=== PATIENT | female | born 1975 | race Caucasian/White ===

== ENCOUNTER 2016-12-08 19:23 | Emergency (ER) | payer SELFPAY ==
[~2016-12-08] VITALS: Ht 162.6 cm; Wt 73.5 kg
[~2016-12-08 19:23] MED LIST: CLON0.1T PO; FAM20T PO; LEV500T GT
[2016-12-08 19:56] VITALS: BP 144/103
[2016-12-08 20:37] LABS: Urine Bilirubin Negative (Negative); Urine Blood Negative /uL (Negative); Urine Color Yellow (Yellow); Urine Glucose Normal (Normal); Urine Ketone Negative (Negative); Urine Mucus FEW (None Seen); Urine RBC 1 /hpf (0 - 4); Urine Squamous Epithelial Cell FEW /hpf (<5); Urine Urobilinogen Normal (Negative)
[2016-12-08 20:38] LABS: Urine Nitrite POSITIVE (Negative)
== END 2016-12-08 22:00 | disposition left against medical advice (07) ==
LOC: ER 19:33
DX: S09.90XA Unspecified injury of head, initial encounter (principal); Z53.21 Procedure and treatment not carried out due to patient leaving prior to being seen by health care provider; Y09 Assault by unspecified means; Y93.89 Activity, other specified; Y99.8 Other external cause status; Y92.89 Other specified places as the place of occurrence of the external cause
CPT/HCPCS: 81001; 81025

== ENCOUNTER 2017-12-03 19:56 | Emergency (ER) | payer SELFPAY ==
[~2017-12-03] VITALS: Ht 162.6 cm; Wt 72.6 kg
[2017-12-03 20:04] VITALS: BP 148/92
[2017-12-03 20:35] LABS: Basophils # (auto) 0 uL; Basophils % (auto) 0.3 % (0.0-2.0); Eosinophils # (auto) 0.2 uL; Eosinophils % (auto) 1.6 % (0.0-7.0); Hematocrit 35.3 % (36.0-46.0); Hemoglobin 12.1 g/dL (12.2-16.2); Lymphocytes # (auto) 1.6 uL; Lymphocytes % (auto) 16.8 % (10.0-50.0); Mean Corpuscular Hemoglobin 29.8 pg (28.0-32.0); Mean Corpuscular Hgb Conc. 34.3 g/dL (32.0-36.0); Mean Corpuscular Volume 86.8 fL (80.0-100.0); Monocytes # (auto) 0.5 uL; Monocytes % (auto) 4.9 % (0.0-12.0); Neutrophils # (auto) 7.4 uL; Neutrophils % (auto) 76.4 % (37.0-80.0); Nucleated Red Blood Cells % 0.1 %; Platelet Count (auto) 239 10^3/uL (140-450); Red Blood Cells 4.06 10^6/uL (4.0-5.20); Red Cell Distribution Width 14.8 % (11.8-14.3); White Blood Cell 9.7 10^3/uL (4.4-10.8)
[2017-12-03 20:41] LABS: Urine Bacteria MOD /hpf (None Seen); Urine Blood Negative /uL (Negative); Urine Mucus FEW (None Seen); Urine Specific Gravity 1.022 (1.001-1.035); Urine WBC 29 /hpf (0 - 5)
[2017-12-03 20:48] LABS: Albumin 3.1 g/dL (3.4-5.0); BUN/Creatinine Ratio 16.7; Calcium 8.7 mg/dL (8.5-10.1); Potassium 3.9 mmol/L (3.5-5.1)
[2017-12-03 20:51] LABS: Bilirubin, Total 0.3 mg/dL (0.2-1.0); Total Protein 7.4 g/dL (6.4-8.2)
[2017-12-04 07:28] LABS: Alcohol, Urine < 3.0 mg/dL (0-5); Amphetamine Screen, Urine POSITIVE (NEGATIVE); Barbiturate Scree,Urine NEGATIVE (NEGATIVE); Benzodiazephine Screen, Urine NEGATIVE (NEGATIVE); Cannabinoid Screen, Urine NEGATIVE (NEGATIVE); Cocaine Screen, Urine NEGATIVE (NEGATIVE); Opiate Scree,Urine NEGATIVE (NEGATIVE); Phencyclidine Screen, Urine NEGATIVE (NEGATIVE)
[2017-12-04] MEDS ORDERED: ACETAMINOPHEN 325 MG TAB PO ONE (09:00)
[2017-12-04] MEDS ORDERED: cefTRIAXone SOD 1,000 MG VL IM ONE (09:00)
== END 2017-12-04 09:29 | disposition home or self-care (01) ==
LOC: ER 19:56
DX: O23.42 Unspecified infection of urinary tract in pregnancy, second trimester (principal); O26.892 Other specified pregnancy related conditions, second trimester; R59.9 Enlarged lymph nodes, unspecified; O16.2 Unspecified maternal hypertension, second trimester; O99.332 Smoking (tobacco) complicating pregnancy, second trimester; F17.210 Nicotine dependence, cigarettes, uncomplicated; O99.322 Drug use complicating pregnancy, second trimester; F15.90 Other stimulant use, unspecified, uncomplicated; Z88.0 Allergy status to penicillin; Z88.6 Allergy status to analgesic agent; Z3A.15 15 weeks gestation of pregnancy
CPT/HCPCS: 36415; 76801; 80053; 80307; 81001; 81025; 83690; 84702; 85025; 96372; 99285; J0696

== ENCOUNTER 2018-01-15 12:20 | Observation (INO) | payer SELFPAY ==
[2018-01-15 14:02] LABS: Urine Amorphous Crystal FEW /hpf (None Seen); Urine Bacteria MOD /hpf (None Seen); Urine Blood 1+ /uL (Negative); Urine Mucus FEW (None Seen); Urine Specific Gravity 1.017 (1.001-1.035); Urine WBC 2257 /hpf (0 - 5); Urine WBC Clumps PRESENT /hpf (None Seen)
[2018-01-15 14:34] LABS: Alcohol, Urine < 3.0 mg/dL (0-5); Amphetamine Screen, Urine POSITIVE (NEGATIVE); Barbiturate Scree,Urine NEGATIVE (NEGATIVE); Benzodiazephine Screen, Urine NEGATIVE (NEGATIVE); Cannabinoid Screen, Urine NEGATIVE (NEGATIVE); Cocaine Screen, Urine NEGATIVE (NEGATIVE); Opiate Scree,Urine NEGATIVE (NEGATIVE); Phencyclidine Screen, Urine NEGATIVE (NEGATIVE)
== END 2018-01-15 15:35 | disposition home or self-care (01) | DRG 781 ==
LOC: LDRP 12:20
PROVIDERS: ADMIT Specialist; ATTEND Specialist
DX: O26.892 Other specified pregnancy related conditions, second trimester (principal); F17.210 Nicotine dependence, cigarettes, uncomplicated; R51 Headache; O99.332 Smoking (tobacco) complicating pregnancy, second trimester; O48.0 Post-term pregnancy; Z3A.21 21 weeks gestation of pregnancy
CPT/HCPCS: 59025; 76805; 76815; 80307; 81001; 81002; G0378

== ENCOUNTER 2018-05-23 17:59 | Observation (INO) | payer OTHER ==
[~2018-05-23 17:59] MED LIST changes: -CLON0.1T PO; -FAM20T PO; -LEV500T GT; +PREN-153 OR
[2018-05-23 18:55] LABS: Alcohol, Urine < 3.0 mg/dL (0-5); Barbiturate Scree,Urine NEGATIVE (NEGATIVE); Benzodiazephine Screen, Urine NEGATIVE (NEGATIVE); Cannabinoid Screen, Urine NEGATIVE (NEGATIVE); Cocaine Screen, Urine NEGATIVE (NEGATIVE); Opiate Scree,Urine NEGATIVE (NEGATIVE); Phencyclidine Screen, Urine NEGATIVE (NEGATIVE)
[2018-05-23 18:57] LABS: Amphetamine Screen, Urine POSITIVE (NEGATIVE)
[2018-05-23 19:00] LABS: Urine Bacteria NONE SEEN /hpf (None Seen); Urine Blood Negative /uL (Negative); Urine Mucus FEW (None Seen); Urine Specific Gravity 1.024 (1.001-1.035); Urine WBC 221 /hpf (0 - 5)
[2018-05-24] MEDS ORDERED: FERR-7 PO (10:42)
== END 2018-05-23 20:36 | disposition home or self-care (01) | DRG 566 ==
LOC: LDRP 17:59
PROVIDERS: ADMIT Specialist; ATTEND Specialist
DX: O62.9 Abnormality of forces of labor, unspecified (principal); F17.210 Nicotine dependence, cigarettes, uncomplicated; O09.523 Supervision of elderly multigravida, third trimester; O99.333 Smoking (tobacco) complicating pregnancy, third trimester; Z3A.40 40 weeks gestation of pregnancy
CPT/HCPCS: 59025; 76805; 76818; 80307; 81001; 81002; G0378

== ENCOUNTER 2018-05-24 09:45 | Inpatient (IN) | payer OTHER ==
[~2018-05-24] VITALS: Ht 162.6 cm; Wt 78.9 kg
[2018-05-24] MEDS ORDERED: FERR-7 PO (10:42)
[2018-05-24 11:13] LABS: Urine Bacteria MOD /hpf (None Seen); Urine Blood Negative /uL (Negative); Urine Mucus FEW (None Seen); Urine Specific Gravity 1.018 (1.001-1.035); Urine WBC 103 /hpf (0 - 5)
[2018-05-24 11:36] LABS: Alcohol, Urine < 3.0 mg/dL (0-5); Amphetamine Screen, Urine NEGATIVE (NEGATIVE); Barbiturate Scree,Urine NEGATIVE (NEGATIVE); Benzodiazephine Screen, Urine NEGATIVE (NEGATIVE); Cannabinoid Screen, Urine NEGATIVE (NEGATIVE); Cocaine Screen, Urine NEGATIVE (NEGATIVE); Opiate Scree,Urine NEGATIVE (NEGATIVE); Phencyclidine Screen, Urine NEGATIVE (NEGATIVE)
[2018-05-24] MEDS ORDERED: DERMOPLAST 60ML BOTTLE TOP PRN (12:15)
[2018-05-24] MEDS ORDERED: LIDOCAINE 2% (LOCAL ANESTH.) PF 5ml SDV ID PRN (12:15)
[2018-05-24] MEDS ORDERED: WITCH HAZEL-GLYCERIN PAD TOP PRN (12:15)
[2018-05-24] MEDS ORDERED: LACT. RINGERS/OXYTOCIN 20UNITS 1,000 ML IV SCH (12:15)
[2018-05-24] MEDS ORDERED: NALBUPHINE HCL 10 MG/1ml INJECTION IV PRN (12:15)
[2018-05-24] MEDS ORDERED: PHISODERM TOP SOLN 240ML BTL TOP PRN (12:15)
[2018-05-24] MEDS: CLINDAMYCIN 900MG IV 50 ML IV SCH ×2 (13:03→20:53)
[2018-05-24] MEDS: LACTATED RINGER'S 1,000 ML IV SCH ×2 (13:05→23:10)
[2018-05-24 13:29] LABS: Basophils # (auto) 0 uL; Basophils % (auto) 0.2 % (0.0-2.0); Eosinophils # (auto) 0.1 uL; Eosinophils % (auto) 0.5 % (0.0-7.0); Lymphocytes # (auto) 1.4 uL; Lymphocytes % (auto) 11.4 % (10.0-50.0); Mean Corpuscular Hemoglobin 27.6 pg (28.0-32.0); Mean Corpuscular Hgb Conc. 33.3 g/dL (32.0-36.0); Mean Corpuscular Volume 82.9 fL (80.0-100.0); Monocytes # (auto) 0.4 uL; Monocytes % (auto) 3.1 % (0.0-12.0); Neutrophils # (auto) 10.4 uL; Neutrophils % (auto) 84.8 % (37.0-80.0); Platelet Count (auto) 173 10^3/uL (140-450); Red Blood Cells 4.35 10^6/uL (4.0-5.20); Red Cell Distribution Width 14.6 % (11.8-14.3); White Blood Cell 12.3 10^3/uL (4.4-10.8)
[2018-05-24 13:43] LABS: INR 0.92 (0.9-1.15); Partial Thromboplastin Time 25.9 sec (23.78-33.04); Prothrombin Time 9.9 sec (9.27-12.13)
[2018-05-24 13:50] LABS: Albumin 2.2 g/dL (3.4-5.0); BUN/Creatinine Ratio 15.8; Bilirubin, Total 0.4 mg/dL (0.2-1.0); Calcium 8.9 mg/dL (8.5-10.1); Potassium 3.6 mmol/L (3.5-5.1); Total Protein 7.1 g/dL (6.4-8.2)
[2018-05-24] MEDS ORDERED: TERBUTALINE SULFATE 1 MG/ML 1ML VIAL SC ONE (19:57)
[2018-05-24] MEDS ORDERED: ePHEDrine SULFATE 50 MG/ML AMP IV ONE (22:45)
[2018-05-24] MEDS ORDERED: NALOXONE HCL 0.4 MG/ML VIAL IV ONE (22:45)
[2018-05-24] MEDS ORDERED: LIDOCAINE HCL 2 %PF INJ 10ML AMP IJ ONE (22:45)
[2018-05-24] MEDS ORDERED: fentaNYL W ROPIVACAINE 150 ML EPI SCH (22:45)
[2018-05-24] MEDS ORDERED: fentaNYL CITRATE 100 MCG/2 ML VL ONE (23:03)
[2018-05-24] MEDS ORDERED: LIDOCAINE 2% (LOCAL ANESTH.) PF 5ml SDV ONE (23:04)
[2018-05-24] MEDS ORDERED: fentaNYL W ROPIVACAINE 150 ML EPI ONE (23:04)
[2018-05-24] MEDS ORDERED: ePHEDrine SULFATE 50 MG/ML AMP ONE (23:04)
[2018-05-25] MEDS ORDERED: LACTATED RINGER'S 1,000 ML IV ONE (00:15)
[2018-05-25] MEDS ORDERED: LACT. RINGERS/OXYTOCIN 20UNITS 500 ML IV ONE (05:54)
[2018-05-25] MEDS ORDERED: LACT. RINGERS/OXYTOCIN 20UNITS 1,000 ML IV SCH (06:54)
[2018-05-25 06:58] VITALS: BP 104/68
[2018-05-25 10:51] VITALS: BP 117/67
[2018-05-25 11:15] VITALS: BP 134/70
[2018-05-25] MEDS: ACETAMINOPHEN 325 MG TAB PO PRN (11:59)
[2018-05-25 13:38] LABS: RPR Non Reactive (Non Reactive)
[2018-05-25] MEDS ORDERED: RHO (D) IMMUNE GLOBULIN 300 MCG INJ IM ONE (15:00)
[2018-05-25 15:05] VITALS: BP 131/72
[2018-05-25] MEDS: IBUPROFEN 600 MG TAB PO PRN ×2 (16:14→23:23)
[2018-05-25 19:00] VITALS: BP 135/62
[2018-05-25 23:00] VITALS: BP 113/76
[2018-05-26] VITALS (7 sets, daily range): BP systolic 116–125; BP diastolic 64–86
[2018-05-26] MEDS: ACETAMINOPHEN 325 MG TAB PO PRN ×2 (03:43→20:11)
[2018-05-26] MEDS ORDERED: ONDANSETRON ODT 4 MG TAB PO PRN (06:30)
[2018-05-26] MEDS: IBUPROFEN 600 MG TAB PO PRN ×2 (09:33→16:40)
[2018-05-27 03:00] VITALS: BP 113/59
[2018-05-27 06:45] VITALS: BP 138/74
[2018-05-27] MEDS: IBUPROFEN 600 MG TAB PO PRN (09:01)
[2018-05-27 11:00] VITALS: BP 125/93
== END 2018-05-27 14:40 | disposition home or self-care (01) | DRG 560 ==
LOC: LDRP 09:45 → OBSVTOIN 12:10 → LDRP 05-26 11:49
PROVIDERS: ADMIT Specialist; ATTEND Specialist
PROC: 10E0XZZ Delivery of Products of Conception, External Approach (ICD-10-PCS; principal; 2018-05-25)
PROC: 0HQ9XZZ Repair Perineum Skin, External Approach (ICD-10-PCS; 2018-05-25)
PROC: 3E0R3BZ Introduction of Anesthetic Agent into Spinal Canal, Percutaneous Approach (ICD-10-PCS; 2018-05-25)
PROC: 00HU33Z Insertion of Infusion Device into Spinal Canal, Percutaneous Approach (ICD-10-PCS; 2018-05-25)
PROC: 3E0234Z Introduction of Serum, Toxoid and Vaccine into Muscle, Percutaneous Approach (ICD-10-PCS; 2018-05-25)
DX: O69.81X0 Labor and delivery complicated by cord around neck, without compression, not applicable or unspecified (principal); O41.03X0 Oligohydramnios, third trimester, not applicable or unspecified; O70.0 First degree perineal laceration during delivery; Z37.0 Single live birth; Z3A.40 40 weeks gestation of pregnancy; Z88.0 Allergy status to penicillin; Z23 Encounter for immunization
CPT/HCPCS: 36415; 59025; 59409; 76815; 80053; 80307; 81001; 81002; 85025; 85610; 85730; 86592; 86850; 86900; 86901; 90384; 94760; 96361; 96366; 96372; 96375; G0378; J2001; J2590; J3010; J3490

== ENCOUNTER 2019-09-17 18:17 | Inpatient (IN) | payer SELFPAY ==
[~2019-09-17] VITALS: Ht 160 cm; Wt 79.6 kg
[~2019-09-17 18:17] MED LIST changes: +FERR-7 PO
[2019-09-17 18:54] LABS: Urine Bacteria FEW /hpf (None Seen); Urine Blood Negative /uL (Negative); Urine Mucus FEW (None Seen); Urine Specific Gravity 1.018 (1.001-1.035); Urine WBC 21 /hpf (0 - 5)
[2019-09-17] MEDS ORDERED: SODIUM CHLORIDE 0.9% 1,000 ML IV ONE ×2 (19:02)
[2019-09-17] MEDS ORDERED: LEVOFLOXACIN 500MG 100 ML IV ONE (19:15)
[2019-09-17 19:20] LABS: Basophils # (auto) 0 uL; Basophils % (auto) 0.4 % (0.0-2.0); Eosinophils # (auto) 0 uL; Eosinophils % (auto) 0.1 % (0.0-7.0); Hemoglobin 13.8 g/dL (12.2-16.2); Lymphocytes # (auto) 0.8 uL; Lymphocytes % (auto) 6.2 % (10.0-50.0); Mean Corpuscular Hgb Conc. 33.7 g/dL (32.0-36.0); Monocytes # (auto) 1.3 uL; Monocytes % (auto) 10.1 % (0.0-12.0); Neutrophils % (auto) 83.2 % (37.0-80.0); Nucleated Red Blood Cells % 0.1 %; Platelet Count (auto) 234 10^3/uL (140-450); Red Blood Cells 4.94 10^6/uL (4.0-5.20); Red Cell Distribution Width 14.9 % (11.8-14.3); White Blood Cell 13.2 10^3/uL (4.4-10.8)
[2019-09-17 19:39] LABS: Albumin 3.3 g/dL (3.4-5.0); Calcium 9.1 mg/dL (8.5-10.1); Potassium 4.4 mmol/L (3.5-5.1)
[2019-09-17 19:42] LABS: BUN/Creatinine Ratio 12.6; Bilirubin, Total 1.6 mg/dL (0.2-1.0); Total Protein 7.7 g/dL (6.4-8.2)
[2019-09-17] MEDS ORDERED: KETOROLAC TROMETH 30 MG/ML 1ML VIAL IV ONE (20:30)
[2019-09-17] MEDS ORDERED: TAMSULOSIN HYDROCHLORIDE 0.4 MG CAP PO ONE (20:30)
[2019-09-17] MEDS ORDERED: DOCUSATE SOD 100 MG CAP PO PRN (21:45)
[2019-09-17] MEDS ORDERED: ACETAMINOPHEN 325 MG TAB PO PRN (21:45)
[2019-09-17] MEDS ORDERED: TEMAZEPAM 15 MG CAP PO PRN (21:45)
[2019-09-18] MEDS: SODIUM CHLORIDE 0.9% 1,000 ML IV SCH (04:58)
[2019-09-18 07:36] LABS: Basophils # (auto) 0 uL; Basophils % (auto) 0.3 % (0.0-2.0); Eosinophils # (auto) 0 uL; Eosinophils % (auto) 0.4 % (0.0-7.0); Hematocrit 34.8 % (36.0-46.0); Hemoglobin 11.4 g/dL (12.2-16.2); Lymphocytes # (auto) 0.9 uL; Lymphocytes % (auto) 11.7 % (10.0-50.0); Mean Corpuscular Hgb Conc. 32.8 g/dL (32.0-36.0); Mean Corpuscular Volume 85.5 fL (80.0-100.0); Monocytes # (auto) 0.8 uL; Monocytes % (auto) 10.8 % (0.0-12.0); Neutrophils # (auto) 5.6 uL; Neutrophils % (auto) 76.8 % (37.0-80.0); Nucleated Red Blood Cells % 0.1 %; Platelet Count (auto) 159 10^3/uL (140-450); Red Blood Cells 4.07 10^6/uL (4.0-5.20); Red Cell Distribution Width 15.3 % (11.8-14.3); White Blood Cell 7.3 10^3/uL (4.4-10.8)
[2019-09-18 08:04] LABS: BUN/Creatinine Ratio 16.3; Calcium 7.1 mg/dL (8.5-10.1)
[2019-09-18] MEDS ORDERED: MANNITOL FTV 25% 12.5 GM/50 ML 50 ML IV ONE (09:30)
[2019-09-18] MEDS: cefTRIAXone 1GM/50ML D5W 50 ML IV SCH (11:08)
[2019-09-18] MEDS: HYDROcodone-ACET 5/325MG TAB PO PRN ×2 (11:25→19:16)
[2019-09-18 13:00] VITALS: BP 108/58
[2019-09-18] MEDS: MORPHINE SULFATE 4 MG/ML SYR/VIAL IV PRN (21:48)
[2019-09-18 22:00] VITALS: BP 116/70
[2019-09-19] MEDS: SODIUM CHLORIDE 0.9% 1,000 ML IV SCH ×2 (01:59→14:53)
[2019-09-19] MEDS: MORPHINE SULFATE 4 MG/ML SYR/VIAL IV PRN ×4 (03:30→20:27)
[2019-09-19] MEDS: ONDANSETRON HCL 4 MG/2 ML VIAL IV PRN ×2 (03:41→20:27)
[2019-09-19 05:26] VITALS: BP_SYST 108; BP_SYST 119; BP_DIAS 61; BP_DIAS 77
[2019-09-19 05:56] LABS: Basophils # (auto) 0 uL; Basophils % (auto) 0.4 % (0.0-2.0); Eosinophils # (auto) 0.1 uL; Eosinophils % (auto) 1.7 % (0.0-7.0); Hematocrit 31.8 % (36.0-46.0); Hemoglobin 10.7 g/dL (12.2-16.2); Lymphocytes % (auto) 16.2 % (10.0-50.0); Mean Corpuscular Hemoglobin 28.4 pg (28.0-32.0); Mean Corpuscular Hgb Conc. 33.8 g/dL (32.0-36.0); Monocytes # (auto) 0.6 uL; Monocytes % (auto) 9.2 % (0.0-12.0); Neutrophils # (auto) 4.4 uL; Neutrophils % (auto) 72.5 % (37.0-80.0); Platelet Count (auto) 169 10^3/uL (140-450); Red Blood Cells 3.78 10^6/uL (4.0-5.20); Red Cell Distribution Width 15.3 % (11.8-14.3); White Blood Cell 6.1 10^3/uL (4.4-10.8)
[2019-09-19 06:09] LABS: INR 1.2 (0.9-1.15)
[2019-09-19 06:13] LABS: Calcium 8.6 mg/dL (8.5-10.1); Potassium 4.1 mmol/L (3.5-5.1)
[2019-09-19 06:15] LABS: BUN/Creatinine Ratio 24.8
[2019-09-19 09:00] VITALS: BP 108/65
[2019-09-19] MEDS: cefTRIAXone 1GM/50ML D5W 50 ML IV SCH (10:20)
[2019-09-19 13:00] VITALS: BP 112/67
[2019-09-19] MEDS ORDERED: MANNITOL FTV 25% 12.5 GM/50 ML 50 ML IV ONE (14:30)
[2019-09-19] MEDS ORDERED: KETOROLAC TROMETH 30 MG/ML 1ML VIAL IV PRN (14:30)
[2019-09-19] MEDS ORDERED: TAMSULOSIN HYDROCHLORIDE 0.4 MG CAP PO ONE (14:45)
[2019-09-19 17:00] VITALS: BP 109/60
[2019-09-19] MEDS: PHENAZOPYRIDINE HCL 100 MG TAB PO SCH (18:27)
[2019-09-19 22:00] VITALS: BP 100/66
[2019-09-19 23:58] VITALS: BP 100/66
[2019-09-20] MEDS: SODIUM CHLORIDE 0.9% 1,000 ML IV SCH (05:20)
[2019-09-20 05:36] VITALS: BP 113/68
[2019-09-20 05:59] LABS: Basophils # (auto) 0 uL; Basophils % (auto) 0.4 % (0.0-2.0); Eosinophils # (auto) 0.1 uL; Eosinophils % (auto) 2.1 % (0.0-7.0); Hematocrit 31.7 % (36.0-46.0); Hemoglobin 10.9 g/dL (12.2-16.2); Lymphocytes % (auto) 23.1 % (10.0-50.0); Mean Corpuscular Hemoglobin 29.2 pg (28.0-32.0); Mean Corpuscular Hgb Conc. 34.3 g/dL (32.0-36.0); Mean Corpuscular Volume 85.1 fL (80.0-100.0); Monocytes # (auto) 0.4 uL; Monocytes % (auto) 10.1 % (0.0-12.0); Neutrophils # (auto) 2.8 uL; Neutrophils % (auto) 64.3 % (37.0-80.0); Nucleated Red Blood Cells % 0.1 %; Platelet Count (auto) 174 10^3/uL (140-450); Red Blood Cells 3.73 10^6/uL (4.0-5.20); Red Cell Distribution Width 15.2 % (11.8-14.3); White Blood Cell 4.4 10^3/uL (4.4-10.8)
[2019-09-20 06:20] LABS: BUN/Creatinine Ratio 20.2; Calcium 8.3 mg/dL (8.5-10.1); Potassium 4.4 mmol/L (3.5-5.1)
[2019-09-20] MEDS: cefTRIAXone 1GM/50ML D5W 50 ML IV SCH (08:54)
[2019-09-20] MEDS: PHENAZOPYRIDINE HCL 100 MG TAB PO SCH ×3 (08:54→20:43)
[2019-09-20] MEDS: MORPHINE SULFATE 4 MG/ML SYR/VIAL IV PRN ×3 (08:54→21:19)
[2019-09-20 09:00] VITALS: BP 114/65
[2019-09-20 13:00] VITALS: BP 117/69
[2019-09-20 17:00] VITALS: BP 144/86
[2019-09-20] MEDS ORDERED: TAMSULOSIN HYDROCHLORIDE 0.4 MG CAP PO SCH (18:00)
[2019-09-20] MEDS: ONDANSETRON HCL 4 MG/2 ML VIAL IV PRN (21:19)
[2019-09-20 22:00] VITALS: BP 120/67
[2019-09-21] MEDS: MORPHINE SULFATE 4 MG/ML SYR/VIAL IV PRN ×2 (04:03→09:41)
[2019-09-21 05:00] VITALS: BP 101/55
[2019-09-21] MEDS: SODIUM CHLORIDE 0.9% 1,000 ML IV SCH ×2 (05:52→14:50)
[2019-09-21 09:31] VITALS: BP 115/63
[2019-09-21] MEDS: PHENAZOPYRIDINE HCL 100 MG TAB PO SCH ×2 (09:40→12:00)
[2019-09-21] MEDS: cefTRIAXone 1GM/50ML D5W 50 ML IV SCH (09:41)
[2019-09-21 12:35] VITALS: BP 106/60
[2019-09-24] MEDS ORDERED: HYDROcodone-ACET 5/325MG TAB PO PRN (14:30)
== END 2019-09-21 15:40 | disposition home or self-care (01) | DRG 690 ==
LOC: ER 18:17 → OVERFLOW 18:18 → WEST WING 09-18 09:12
PROVIDERS: ADMIT Hospitalist; ATTEND Family Medicine
DX: N13.6 Pyonephrosis (principal); E87.1 Hypo-osmolality and hyponatremia; N17.0 Acute kidney failure with tubular necrosis; E86.0 Dehydration; F17.210 Nicotine dependence, cigarettes, uncomplicated; B96.20 Unspecified Escherichia coli [E. coli] as the cause of diseases classified elsewhere; I12.9 Hypertensive chronic kidney disease with stage 1 through stage 4 chronic kidney disease, or unspecified chronic kidney disease; N18.9 Chronic kidney disease, unspecified; Z83.3 Family history of diabetes mellitus; Z80.0 Family history of malignant neoplasm of digestive organs; Z87.442 Personal history of urinary calculi; Z88.0 Allergy status to penicillin; Z88.8 Allergy status to other drugs, medicaments and biological substances
CPT/HCPCS: 36415; 71045; 74176; 80048; 80053; 81001; 84484; 85025; 85610; 87086; 87088; 87186; G0378; J0696; J1885; J1956; J2405

== ENCOUNTER 2022-06-05 17:59 | Emergency (ER) | payer MEDICAID, OTHER ==
[~2022-06-05] VITALS: Ht 160 cm; Wt 70.0 kg
[2022-06-05 18:21] VITALS: BP 160/96
[2022-06-05 19:11] LABS: Basophils # (auto) 0.1 10 ^3/uL (0-0.2); Basophils % (auto) 0.7 % (0.0-2.0); Eosinophils # (auto) 0 10 ^3/uL (0-0.8); Eosinophils % (auto) 0.4 % (0.0-7.0); Lymphocytes # (auto) 1.8 10 ^3/uL (0.4-5.4); Lymphocytes % (auto) 23.6 % (10.0-50.0); Mean Corpuscular Hemoglobin 30.2 pg (28.0-32.0); Mean Corpuscular Hgb Conc. 33.3 g/dL (32.0-36.0); Mean Corpuscular Volume 90.7 fL (80.0-100.0); Monocytes # (auto) 0.4 10 ^3/uL (0-1.3); Neutrophils # (auto) 5.5 10 ^3/uL (1.6-8.6); Neutrophils % (auto) 70.3 % (37.0-80.0); Nucleated Red Blood Cells % 0.2 %; Red Blood Cells 4.63 10^6/uL (4.0-5.20); Red Cell Distribution Width 13.3 % (11.8-14.3); White Blood Cell 7.8 10^3/uL (4.4-10.8)
[2022-06-05 19:19] LABS: Urine Bacteria FEW /hpf (None Seen); Urine Blood Negative /uL (Negative); Urine Mucus FEW (None Seen); Urine Specific Gravity 1.031 (1.001-1.035); Urine WBC 24 /hpf (0 - 5)
[2022-06-05 19:30] LABS: Albumin 3.8 g/dL (3.4-5.0); BUN/Creatinine Ratio 9.6; Calcium 8.6 mg/dL (8.5-10.1); Potassium 3.6 mmol/L (3.5-5.1)
[2022-06-05 19:33] LABS: Bilirubin, Total 1.1 mg/dL (0.2-1.0); Total Protein 7.4 g/dL (6.4-8.2)
[2022-06-07] MEDS ORDERED: LEVO750T8 PO (21:04)
== END 2022-06-06 01:55 | disposition left against medical advice (07) ==
LOC: ER 17:59
DX: R10.9 Unspecified abdominal pain (principal); R50.9 Fever, unspecified; Z53.21 Procedure and treatment not carried out due to patient leaving prior to being seen by health care provider
CPT/HCPCS: 36415; 74176; 80053; 81001; 81025; 85025

== ENCOUNTER 2022-06-07 15:41 | Emergency (ER) | payer MEDICAID ==
[~2022-06-07] VITALS: Ht 160 cm; Wt 74.3 kg
[2022-06-07 17:36] LABS: Basophils # (auto) 0 10 ^3/uL (0-0.2); Basophils % (auto) 0.3 % (0.0-2.0); Eosinophils # (auto) 0.1 10 ^3/uL (0-0.8); Eosinophils % (auto) 0.9 % (0.0-7.0); Hematocrit 40.1 % (36.0-46.0); Hemoglobin 13.5 g/dL (12.2-16.2); Lymphocytes # (auto) 1.2 10 ^3/uL (0.4-5.4); Lymphocytes % (auto) 17.1 % (10.0-50.0); Mean Corpuscular Hemoglobin 30.5 pg (28.0-32.0); Mean Corpuscular Hgb Conc. 33.5 g/dL (32.0-36.0); Mean Corpuscular Volume 91.1 fL (80.0-100.0); Monocytes # (auto) 0.4 10 ^3/uL (0-1.3); Monocytes % (auto) 5.7 % (0.0-12.0); Neutrophils # (auto) 5.2 10 ^3/uL (1.6-8.6); Red Blood Cells 4.41 10^6/uL (4.0-5.20); Red Cell Distribution Width 13.3 % (11.8-14.3); White Blood Cell 6.8 10^3/uL (4.4-10.8)
[2022-06-07 17:38] LABS: Urine Bacteria FEW /hpf (None Seen); Urine Blood 1+ /uL (Negative); Urine Hyaline Cast FEW /lpf (0 - 2); Urine Mucus FEW (None Seen); Urine Specific Gravity 1.028 (1.001-1.035); Urine WBC 122 /hpf (0 - 5)
[2022-06-07 17:53] LABS: Lactic Acid w/Reflex 2.7 mmol/L (0.4-2.0)
[2022-06-07 17:57] LABS: Albumin 3.5 g/dL (3.4-5.0); Calcium 8.7 mg/dL (8.5-10.1); Potassium 3.1 mmol/L (3.5-5.1)
[2022-06-07 18:01] LABS: BUN/Creatinine Ratio 8.6; Total Protein 6.9 g/dL (6.4-8.2)
[2022-06-07] MEDS ORDERED: SODIUM CHLORIDE 0.9% 1,000 ML IV ONE (18:45)
[2022-06-07] MEDS ORDERED: levoFLOXacin 750MG 150 ML IV ONE (18:45)
[2022-06-07 20:00] VITALS: BP 164/97
[2022-06-07 20:15] LABS: Amphetamine Screen, Urine POSITIVE (NEGATIVE); Barbiturate Scree,Urine NEGATIVE (NEGATIVE); Benzodiazephine Screen, Urine NEGATIVE (NEGATIVE); Cannabinoid Screen, Urine NEGATIVE (NEGATIVE); Cocaine Screen, Urine NEGATIVE (NEGATIVE); Phencyclidine Screen, Urine NEGATIVE (NEGATIVE)
[2022-06-07 20:28] LABS: Alcohol, Urine < 3.0 mg/dL (0-10); Opiate Scree,Urine NEGATIVE (NEGATIVE)
[2022-06-07] MEDS ORDERED: LEVO750T8 PO (21:04)
== END 2022-06-07 21:31 | disposition home or self-care (01) ==
LOC: ER 15:45
DX: N39.0 Urinary tract infection, site not specified (principal); F15.10 Other stimulant abuse, uncomplicated; F12.10 Cannabis abuse, uncomplicated; I10 Essential (primary) hypertension; F17.210 Nicotine dependence, cigarettes, uncomplicated; Z79.2 Long term (current) use of antibiotics; Z88.0 Allergy status to penicillin; Z88.2 Allergy status to sulfonamides; Z91.018 Allergy to other foods
CPT/HCPCS: 36415; 74176; 80053; 80307; 81001; 83605; 83690; 84702; 85025; 96365; 99284; J1956

== ENCOUNTER 2022-06-19 03:32 | Emergency (ER) | payer MEDICAID ==
[~2022-06-19] VITALS: Ht 160 cm; Wt 74.0 kg
[~2022-06-19 03:32] MED LIST changes: -FERR-7 PO; +LEVO750T8 PO; -PREN-153 OR
[2022-06-19 04:03] VITALS: BP 186/110
[2022-06-19 05:08] LABS: Basophils # (auto) 0 10 ^3/uL (0-0.2); Basophils % (auto) 0.5 % (0.0-2.0); Eosinophils # (auto) 0.1 10 ^3/uL (0-0.8); Eosinophils % (auto) 1.9 % (0.0-7.0); Hematocrit 39.5 % (36.0-46.0); Hemoglobin 13.3 g/dL (12.2-16.2); Lymphocytes # (auto) 1.6 10 ^3/uL (0.4-5.4); Mean Corpuscular Hemoglobin 30.7 pg (28.0-32.0); Mean Corpuscular Hgb Conc. 33.7 g/dL (32.0-36.0); Mean Corpuscular Volume 91.1 fL (80.0-100.0); Monocytes # (auto) 0.4 10 ^3/uL (0-1.3); Monocytes % (auto) 5.4 % (0.0-12.0); Neutrophils # (auto) 5.2 10 ^3/uL (1.6-8.6); Neutrophils % (auto) 70.2 % (37.0-80.0); Nucleated Red Blood Cells % 0.1 %; Red Blood Cells 4.33 10^6/uL (4.0-5.20); Red Cell Distribution Width 13.5 % (11.8-14.3); White Blood Cell 7.5 10^3/uL (4.4-10.8)
[2022-06-19 05:25] LABS: Albumin 3.5 g/dL (3.4-5.0); Calcium 8.6 mg/dL (8.5-10.1); Potassium 4.2 mmol/L (3.5-5.1)
[2022-06-19 05:30] LABS: BUN/Creatinine Ratio 14.4; Bilirubin, Total 0.5 mg/dL (0.2-1.0); Total Protein 6.7 g/dL (6.4-8.2)
== END 2022-06-19 06:38 | disposition left against medical advice (07) ==
LOC: ER 03:34
DX: R30.0 Dysuria (principal); R35.0 Frequency of micturition; R10.2 Pelvic and perineal pain; R11.2 Nausea with vomiting, unspecified; Z53.21 Procedure and treatment not carried out due to patient leaving prior to being seen by health care provider
CPT/HCPCS: 36415; 74176; 80053; 85025

== ENCOUNTER 2022-08-07 17:49 | Emergency (ER) | payer MEDICAID ==
[~2022-08-07] VITALS: Ht 160 cm; Wt 76.8 kg
[2022-08-07] MEDS ORDERED: traMADol HCL 50 MG TAB PO ONE (20:15)
[2022-08-07] MEDS ORDERED: cloNIDine HCL 0.1 MG TAB PO ONE (20:15)
[2022-08-07 21:30] LABS: Basophils # (auto) 0.1 10 ^3/uL (0-0.2); Basophils % (auto) 0.6 % (0.0-2.0); Eosinophils # (auto) 0.1 10 ^3/uL (0-0.8); Eosinophils % (auto) 1.3 % (0.0-7.0); Hematocrit 45.8 % (36.0-46.0); Hemoglobin 15.7 g/dL (12.2-16.2); Lymphocytes # (auto) 2.1 10 ^3/uL (0.4-5.4); Lymphocytes % (auto) 21.4 % (10.0-50.0); Mean Corpuscular Hgb Conc. 34.2 g/dL (32.0-36.0); Mean Corpuscular Volume 90.7 fL (80.0-100.0); Monocytes # (auto) 0.5 10 ^3/uL (0-1.3); Monocytes % (auto) 5.5 % (0.0-12.0); Neutrophils % (auto) 71.2 % (37.0-80.0); Nucleated Red Blood Cells % 0.3 %; Red Blood Cells 5.05 10^6/uL (4.0-5.20); Red Cell Distribution Width 13.8 % (11.8-14.3); White Blood Cell 9.8 10^3/uL (4.4-10.8)
[2022-08-07 21:40] LABS: Albumin 3.5 g/dL (3.4-5.0); Calcium 9.1 mg/dL (8.5-10.1); Potassium 4.2 mmol/L (3.5-5.1)
[2022-08-07 21:43] LABS: BUN/Creatinine Ratio 15.4
[2022-08-07 21:56] LABS: Bilirubin, Total 0.6 mg/dL (0.2-1.0); Total Protein 6.8 g/dL (6.4-8.2)
[2022-08-08] MEDS ORDERED: CIPR500T4 PO (07:04)
[2022-08-08] MEDS ORDERED: cefTRIAXone SOD 1,000 MG VL IM ONE ×2 (07:15→07:45)
[2022-08-08 08:04] VITALS: BP 134/78
== END 2022-08-09 08:06 | disposition home or self-care (01) ==
LOC: ER 17:49
DX: N39.0 Urinary tract infection, site not specified (principal); I10 Essential (primary) hypertension; F17.210 Nicotine dependence, cigarettes, uncomplicated; F12.90 Cannabis use, unspecified, uncomplicated; F15.90 Other stimulant use, unspecified, uncomplicated; Z88.0 Allergy status to penicillin; Z88.2 Allergy status to sulfonamides; Z91.018 Allergy to other foods; Z88.8 Allergy status to other drugs, medicaments and biological substances; Z87.442 Personal history of urinary calculi
CPT/HCPCS: 36415; 74176; 80053; 85025

== ENCOUNTER 2022-08-26 00:28 | Emergency (ER) | payer MEDICAID ==
[~2022-08-26] VITALS: Ht 152.4 cm; Wt 69.0 kg
[~2022-08-26 00:28] MED LIST changes: +CIPR500T4 PO
[2022-08-26] MEDS ORDERED: HYDROcodone-ACET 10/325MG TAB PO ONE (01:00)
[2022-08-26] MEDS ORDERED: ONDANSETRON ODT 4 MG TAB PO ONE (01:00)
[2022-08-26 01:08] VITALS: BP 166/129
[2022-08-26] MEDS ORDERED: cloNIDine HCL 0.1 MG TAB PO ONE (01:30)
[2022-08-26 01:40] LABS: Basophils # (auto) 0 10 ^3/uL (0-0.2); Basophils % (auto) 0.4 % (0.0-2.0); Eosinophils # (auto) 0 10 ^3/uL (0-0.8); Eosinophils % (auto) 0.2 % (0.0-7.0); Hematocrit 49.2 % (36.0-46.0); Hemoglobin 16.2 g/dL (12.2-16.2); Lymphocytes % (auto) 16.5 % (10.0-50.0); Mean Corpuscular Hemoglobin 30.7 pg (28.0-32.0); Mean Corpuscular Hgb Conc. 32.9 g/dL (32.0-36.0); Mean Corpuscular Volume 93.2 fL (80.0-100.0); Monocytes # (auto) 0.8 10 ^3/uL (0-1.3); Monocytes % (auto) 6.5 % (0.0-12.0); Neutrophils # (auto) 9.4 10 ^3/uL (1.6-8.6); Neutrophils % (auto) 76.4 % (37.0-80.0); Nucleated Red Blood Cells % 0.1 %; Red Blood Cells 5.28 10^6/uL (4.0-5.20); White Blood Cell 12.2 10^3/uL (4.4-10.8)
[2022-08-26 02:05] LABS: Albumin 3.7 g/dL (3.4-5.0); Anion Gap 8 (5-15); BUN/Creatinine Ratio 16.7; Blood Urea Nitrogen 16 mg/dL (7-18); Calcium 8.3 mg/dL (8.5-10.1); Carbon Dioxide 24 mmol/L (21-32); Chloride 106 mmol/L (98-107); GFR African American 81 mL/min; GFR Non-African American 67 mL/min; Glucose 88 mg/dL (74-106); Potassium 4.4 mmol/L (3.5-5.1); Sodium 138 mmol/L (136-145)
[2022-08-26 02:07] LABS: Alanine Aminotransferase 65 U/L (13-56); Alkaline Phosphatase 104 U/L (45-117); Aspartate Aminotransferase 35 U/L (15-37); Bilirubin, Total 0.9 mg/dL (0.2-1.0); Total Protein 7.3 g/dL (6.4-8.2)
[2022-08-26] MEDS ORDERED: TRAM-297 PO (02:15)
[2022-08-26] MEDS ORDERED: NITR-87 PO (02:15)
[2022-08-26] MEDS ORDERED: methylPREDNISolone SOD SUCC 125 MG/2 ML VL ONE (04:44)
[2022-08-26 09:53] LABS: Urine Bacteria None Seen /hpf (None Seen); Urine WBC None Seen /hpf (0 - 5)
[2022-08-26 09:56] LABS: Urine Blood 2+ /uL (Negative)
== END 2022-08-26 09:10 | disposition home or self-care (01) ==
LOC: ER 00:28
DX: N39.0 Urinary tract infection, site not specified (principal); I10 Essential (primary) hypertension; F17.210 Nicotine dependence, cigarettes, uncomplicated; Z87.442 Personal history of urinary calculi; Z88.2 Allergy status to sulfonamides; Z88.0 Allergy status to penicillin; Z20.822 Contact with and (suspected) exposure to COVID-19; Z91.018 Allergy to other foods
CPT/HCPCS: 36415; 71045; 74176; 80053; 81001; 85025; 87426; 87804; 99285; J2930; Q0162

== ENCOUNTER 2022-09-09 06:38 | Emergency (ER) | payer MEDICAID ==
[~2022-09-09] VITALS: Ht 162.6 cm; Wt 68.0 kg
[~2022-09-09 06:38] MED LIST changes: +NITR-87 PO; +TRAM-297 PO
[2022-09-09 07:54] VITALS: BP 141/84
[2022-09-09 09:08] LABS: Urine Bacteria NONE SEEN /hpf (None Seen); Urine Blood Negative /uL (Negative); Urine Specific Gravity 1.028 (1.001-1.035); Urine WBC 96 /hpf (0 - 5); Urine WBC Clumps PRESENT /hpf (None Seen)
[2022-09-09] MEDS ORDERED: LEVO750T64 PO (09:43)
[2022-09-09] MEDS ORDERED: ACET1CAP14 PO (11:08)
[2022-09-09] MEDS ORDERED: ONDA-144 PO (11:08)
[2022-09-09] MEDS ORDERED: ONDANSETRON ODT 4 MG TAB PO ONE (11:15)
== END 2022-09-09 11:11 | disposition home or self-care (01) ==
LOC: ER 06:38
DX: N39.0 Urinary tract infection, site not specified (principal); I10 Essential (primary) hypertension; F17.210 Nicotine dependence, cigarettes, uncomplicated; F12.10 Cannabis abuse, uncomplicated; F15.10 Other stimulant abuse, uncomplicated; Z87.442 Personal history of urinary calculi; Z88.0 Allergy status to penicillin; Z88.1 Allergy status to other antibiotic agents; Z88.8 Allergy status to other drugs, medicaments and biological substances
CPT/HCPCS: 81001; 87086; 99283; Q0162

== ENCOUNTER 2023-03-18 13:40 | Inpatient (IN) | payer MEDICAID ==
[~2023-03-18] VITALS: Ht 160 cm; Wt 81.4 kg
[~2023-03-18 13:40] MED LIST changes: +ACET1CAP14 PO; +LEVO750T40 PO; +ONDA-144 PO
[2023-03-18] MEDS ORDERED: cloNIDine HCL 0.1 MG TAB PO ONE (14:00)
[2023-03-18 14:22] LABS: Calcium 8.3 mg/dL (8.5-10.1); Potassium 3.5 mmol/L (3.5-5.1)
[2023-03-18 14:25] LABS: BUN/Creatinine Ratio 12.9 (10.0-20.0); Basophils # (auto) 0 10 ^3/uL (0-0.2); Basophils % (auto) 0.3 % (0.0-2.0); Bilirubin, Total 1.1 mg/dL (0.2-1.0); Eosinophils # (auto) 0 10 ^3/uL (0-0.8); Eosinophils % (auto) 0.5 % (0.0-7.0); Hemoglobin 15.1 g/dL (12.2-16.2); Lymphocytes # (auto) 1.2 10 ^3/uL (0.4-5.4); Lymphocytes % (auto) 12.4 % (10.0-50.0); Mean Corpuscular Hemoglobin 31.6 pg (28.0-32.0); Mean Corpuscular Hgb Conc. 33.6 g/dL (32.0-36.0); Monocytes # (auto) 0.6 10 ^3/uL (0-1.3); Monocytes % (auto) 5.9 % (0.0-12.0); Neutrophils # (auto) 7.6 10 ^3/uL (1.6-8.6); Neutrophils % (auto) 80.9 % (37.0-80.0); Nucleated Red Blood Cells % 0.1 %; Red Blood Cells 4.79 10^6/uL (4.0-5.20); Red Cell Distribution Width 14.9 % (11.8-14.3); Total Protein 6.1 g/dL (6.4-8.2); White Blood Cell 9.4 10^3/uL (4.4-10.8)
[2023-03-18] MEDS ORDERED: ENOXAPARIN SOD 80 MG/0.8ML SYRINGE SC ONE (14:45)
[2023-03-18] MEDS ORDERED: levoFLOXacin 500MG 100 ML IV ONE (15:30)
[2023-03-18] MEDS ORDERED: CEPHALEXIN 250 MG CAP PO ONE (16:15)
[2023-03-18 16:28] LABS: Lactic Acid w/Reflex 2.1 mmol/L (0.4-2.0)
[2023-03-18 16:29] VITALS: O2SAT 98
[2023-03-18] MEDS ORDERED: ENOXAPARIN SOD 40 MG/0.4 ML SYRINGE SC SCH (19:00)
[2023-03-18] MEDS ORDERED: hydrALAZINE HCL 20 MG/ML VL IV PRN (19:15)
[2023-03-18 19:30] VITALS: PULSE 90; RESP 18; O2SAT 97
[2023-03-18] MEDS ORDERED: FUROSEMIDE 20 MG/2 ML VIAL IV SCH (22:00)
[2023-03-18] MEDS ORDERED: ATENOLOL 50 MG TAB PO SCH (22:00)
[2023-03-18] MEDS: ATORVASTATIN 20 MG TAB PO SCH (22:23)
[2023-03-19] MEDS ORDERED: ENOXAPARIN SOD 80 MG/0.8ML SYRINGE SC SCH (03:00)
[2023-03-19] MEDS ORDERED: TEMAZEPAM 15 MG CAP PO PRN (03:30)
[2023-03-19 05:59] LABS: Basophils # (auto) 0 10 ^3/uL (0-0.2); Basophils % (auto) 0.5 % (0.0-2.0); Eosinophils # (auto) 0 10 ^3/uL (0-0.8); Eosinophils % (auto) 0.5 % (0.0-7.0); Hematocrit 44.2 % (36.0-46.0); Hemoglobin 15.1 g/dL (12.2-16.2); Lymphocytes # (auto) 1.5 10 ^3/uL (0.4-5.4); Lymphocytes % (auto) 16.8 % (10.0-50.0); Mean Corpuscular Hemoglobin 31.8 pg (28.0-32.0); Mean Corpuscular Hgb Conc. 34.1 g/dL (32.0-36.0); Mean Corpuscular Volume 93.4 fL (80.0-100.0); Monocytes # (auto) 0.5 10 ^3/uL (0-1.3); Neutrophils % (auto) 77.2 % (37.0-80.0); Nucleated Red Blood Cells % 0.1 %; Red Blood Cells 4.73 10^6/uL (4.0-5.20); Red Cell Distribution Width 14.9 % (11.8-14.3)
[2023-03-19 06:16] LABS: Potassium 3.5 mmol/L (3.5-5.1)
[2023-03-19 06:26] LABS: Albumin 2.6 g/dL (3.4-5.0); BUN/Creatinine Ratio 17.8 (10.0-20.0); Calcium 8.2 mg/dL (8.5-10.1); Total Protein 6.2 g/dL (6.4-8.2)
[2023-03-19 06:59] LABS: Cholesterol 130 mg/dL (< 200)
[2023-03-19 07:02] LABS: HDL Cholesterol 31 mg/dL (40-59); LDL Cholesterol 93 mg/dL (< 100); Triglycerides 77 mg/dL (< 150)
[2023-03-19 07:48] VITALS: PULSE 68; RESP 28; O2SAT 94
[2023-03-19] MEDS ORDERED: FUROSEMIDE 40 MG/4 ML VIAL IV ONE (08:15)
[2023-03-19] MEDS ORDERED: POTASSIUM EFFERVESENT TAB 25 MEQ PO ONE ×2 (08:30→16:30)
[2023-03-19] MEDS ORDERED: ATENOLOL 50 MG TAB PO SCH (10:00)
[2023-03-19 10:03] LABS: Urine Bacteria FEW /hpf (None Seen); Urine Blood 3+ /uL (Negative); Urine Specific Gravity 1.014 (1.001-1.035); Urine WBC 81 /hpf (0 - 5)
[2023-03-19 10:14] LABS: Alcohol, Urine < 3.0 mg/dL (0-10); Amphetamine Screen, Urine POSITIVE (NEGATIVE); Barbiturate Scree,Urine NEGATIVE (NEGATIVE); Benzodiazephine Screen, Urine NEGATIVE (NEGATIVE); Cannabinoid Screen, Urine POSITIVE (NEGATIVE); Cocaine Screen, Urine NEGATIVE (NEGATIVE)
[2023-03-19] MEDS: ASPirin 81 mg TAB PO SCH (10:16)
[2023-03-19] MEDS: SACUBITRIL-VALSARTAN 24mg/26mg TAB PO SCH ×2 (10:16→23:55)
[2023-03-19 10:23] LABS: Opiate Scree,Urine NEGATIVE (NEGATIVE); Phencyclidine Screen, Urine NEGATIVE (NEGATIVE)
[2023-03-19] MEDS: SPIRONOLACTONE 25 MG TAB PO SCH (13:16)
[2023-03-19] MEDS: LORazepam 2MG/ML-1ML VIAL IV PRN (16:53)
[2023-03-19] MEDS: FUROSEMIDE 40 MG/4 ML VIAL IV SCH (18:48)
[2023-03-19 20:10] VITALS: PULSE 73; RESP 15; O2SAT 95
[2023-03-19] MEDS ORDERED: ONDANSETRON HCL 4 MG/2 ML VIAL IV PRN (21:30)
[2023-03-19] MEDS ORDERED: ONDANSETRON HCL 4 MG/2 ML VIAL ONE (21:42)
[2023-03-19] MEDS ORDERED: POTASSIUM CHL 20 Meq TABLET PO ONE (23:00)
[2023-03-19] MEDS ORDERED: ASPirin 325 MG TAB PO ONE (23:00)
[2023-03-19] MEDS: ATORVASTATIN 20 MG TAB PO SCH (23:55)
[2023-03-20] VITALS (7 sets, daily range): BP systolic 115–150; BP diastolic 81–98; PULSE 67–89; RESP 14–19; TEMP 97.6–98.5; O2SAT 96–98
[2023-03-20] MEDS: FUROSEMIDE 40 MG/4 ML VIAL IV SCH (06:16)
[2023-03-20] MEDS ORDERED: EMPAGLIFLOZIN 10 MG TAB PO SCH (07:00)
[2023-03-20] MEDS: SACUBITRIL-VALSARTAN 24mg/26mg TAB PO SCH (09:35)
[2023-03-20] MEDS: SPIRONOLACTONE 25 MG TAB PO SCH (09:36)
[2023-03-20] MEDS: ASPirin 81 mg TAB PO SCH (09:36)
[2023-03-20] MEDS ORDERED: METOPROLOL SUCCINATE XL 50 MG TAB PO SCH (10:00)
[2023-03-20] MEDS ORDERED: ENOXAPARIN SOD 40 MG/0.4 ML SYRINGE SC SCH (10:00)
[2023-03-20 10:24] LABS: Calcium 8.4 mg/dL (8.5-10.1); Potassium 3.7 mmol/L (3.5-5.1)
[2023-03-20 10:28] LABS: BUN/Creatinine Ratio 18.2 (10.0-20.0)
[2023-03-20] MEDS: LORazepam 2MG/ML-1ML VIAL IV PRN (10:35)
[2023-03-20] MEDS ORDERED: SACU1TAB PO (13:29)
[2023-03-20] MEDS ORDERED: FURO1TAB33 PO (13:29)
[2023-03-20] MEDS ORDERED: METO-6 PO (13:29)
== END 2023-03-20 17:58 | disposition home or self-care (01) | DRG 194 ==
LOC: ER 13:40 → TELE 19:04 → TELE-WESTW 03-19 23:04
PROVIDERS: ADMIT Nurse Practitioner Acute Care; ATTEND Nurse Practitioner Acute Care
DX: I11.0 Hypertensive heart disease with heart failure (principal); I21.A1 Myocardial infarction type 2; E44.1 Mild protein-calorie malnutrition; I42.7 Cardiomyopathy due to drug and external agent; F17.210 Nicotine dependence, cigarettes, uncomplicated; I16.1 Hypertensive emergency; F15.10 Other stimulant abuse, uncomplicated; I50.43 Acute on chronic combined systolic (congestive) and diastolic (congestive) heart failure; F10.10 Alcohol abuse, uncomplicated; Z79.899 Other long term (current) drug therapy; Z88.0 Allergy status to penicillin; Z88.2 Allergy status to sulfonamides; Z88.8 Allergy status to other drugs, medicaments and biological substances; Z80.0 Family history of malignant neoplasm of digestive organs; Z83.3 Family history of diabetes mellitus; Z86.32 Personal history of gestational diabetes; Z87.442 Personal history of urinary calculi; Z91.128 Patient's intentional underdosing of medication regimen for other reason; Z68.31 Body mass index [BMI] 31.0-31.9, adult
CPT/HCPCS: 36415; 71045; 80048; 80053; 80061; 80307; 81001; 81025; 82962; 83036; 83605; 83735; 83880; 84443; 84484; 85025; 85379; 87040; 93005; 93306; 93970; 96372; 99291; G0378; J2405

== ENCOUNTER 2023-04-19 00:38 | Inpatient (IN) | payer MEDICAID ==
[~2023-04-19] VITALS: PULSE 72; RESP 13; TEMP 97.9; Ht 160 cm; Wt 72.7 kg
[~2023-04-19 00:38] MED LIST changes: +FURO1TAB33 PO; +METO-6 PO; +SACU1TAB PO
[2023-04-19 00:55] LABS: Basophils # (auto) 0 10 ^3/uL (0-0.2); Basophils % (auto) 0.6 % (0.0-2.0); Eosinophils # (auto) 0 10 ^3/uL (0-0.8); Eosinophils % (auto) 0.5 % (0.0-7.0); Hematocrit 43.1 % (36.0-46.0); Hemoglobin 14.6 g/dL (12.2-16.2); Lymphocytes # (auto) 1.9 10 ^3/uL (0.4-5.4); Lymphocytes % (auto) 25.3 % (10.0-50.0); Mean Corpuscular Hemoglobin 31.8 pg (28.0-32.0); Mean Corpuscular Hgb Conc. 33.7 g/dL (32.0-36.0); Mean Corpuscular Volume 94.3 fL (80.0-100.0); Monocytes # (auto) 0.5 10 ^3/uL (0-1.3); Monocytes % (auto) 7.2 % (0.0-12.0); Neutrophils # (auto) 4.9 10 ^3/uL (1.6-8.6); Neutrophils % (auto) 66.4 % (37.0-80.0); Nucleated Red Blood Cells % 0.1 %; Red Blood Cells 4.57 10^6/uL (4.0-5.20); Red Cell Distribution Width 14.8 % (11.8-14.3); White Blood Cell 7.3 10^3/uL (4.4-10.8)
[2023-04-19] MEDS ORDERED: cloNIDine HCL 0.1 MG TAB PO ONE (01:00)
[2023-04-19 01:08] LABS: INR 1.36 (0.9-1.15)
[2023-04-19 01:10] LABS: Albumin 3.6 g/dL (3.4-5.0); Calcium 8.6 mg/dL (8.5-10.1); Magnesium 1.7 mg/dL (1.6-2.6); Potassium 3.3 mmol/L (3.5-5.1)
[2023-04-19 01:12] LABS: BUN/Creatinine Ratio 12.4 (10.0-20.0)
[2023-04-19 01:15] LABS: Total Protein 6.8 g/dL (6.4-8.2)
[2023-04-19 01:19] VITALS: TEMP 97.9
[2023-04-19 01:25] VITALS: PULSE 71; RESP 14; O2SAT 98
[2023-04-19] MEDS ORDERED: ASPirin-EC 325mg tab PO ONE (04:30)
[2023-04-19] MEDS ORDERED: ENOXAPARIN SOD 80 MG/0.8ML SYRINGE SC ONE (04:30)
[2023-04-19] MEDS ORDERED: ONDANSETRON HCL 4 MG/2 ML VIAL IV PRN (05:15)
[2023-04-19] MEDS ORDERED: DOCUSATE SOD 100 MG CAP PO PRN (05:15)
[2023-04-19] MEDS ORDERED: POTASSIUM CHL 20 Meq TABLET PO ONE (05:15)
[2023-04-19] MEDS ORDERED: MORPHINE SULFATE INJ 2 MG/ml SYRG IV PRN ×2 (05:15→06:00)
[2023-04-19] MEDS ORDERED: hydrALAZINE HCL 20 MG/ML VL IV PRN (05:15)
[2023-04-19] MEDS ORDERED: HYDROcodone-ACET 5/325MG TAB PO PRN (05:15)
[2023-04-19] MEDS ORDERED: ACETAMINOPHEN 325 MG TAB PO PRN (05:15)
[2023-04-19 06:00] VITALS: O2SAT 91
[2023-04-19] MEDS ORDERED: SODIUM CHLOR 0.9% PF (SALINE LOCK) 10ML VIAL/SYR IV SCH (06:00)
[2023-04-19] MEDS ORDERED: NITROGLYCERIN 0.4 MG SL TAB SL PRN (06:00)
[2023-04-19 08:34] LABS: Alanine Aminotransferase 39 U/L (13-56); Albumin 3.2 g/dL (3.4-5.0); Alkaline Phosphatase 94 U/L (45-117); Anion Gap 10 (5-15); Aspartate Aminotransferase 37 U/L (15-37); BUN/Creatinine Ratio 12.5 (10.0-20.0); Bilirubin, Total 1.5 mg/dL (0.2-1.0); Blood Urea Nitrogen 13 mg/dL (7-18); Calcium 8.2 mg/dL (8.5-10.1); Carbon Dioxide 21 mmol/L (21-32); Chloride 110 mmol/L (98-107); GFR African American 73 mL/min; GFR Non-African American 61 mL/min; Glucose 95 mg/dL (74-106); Potassium 3.4 mmol/L (3.5-5.1); Sodium 141 mmol/L (136-145); Total Protein 6.4 g/dL (6.4-8.2)
[2023-04-19] MEDS ORDERED: FUROSEMIDE 40 MG/4 ML VIAL IV SCH (10:00)
[2023-04-20] MEDS ORDERED: ENOXAPARIN SOD 40 MG/0.4 ML SYRINGE SC SCH (10:00)
[2023-04-20] MEDS ORDERED: ASPirin 81 mg TAB PO SCH (10:00)
== END 2023-04-19 08:00 | disposition left against medical advice (07) | DRG 194 ==
LOC: ER 00:38 → TELE 05:57
PROVIDERS: ADMIT Nurse Practitioner Family; ATTEND Nurse Practitioner Family
DX: I11.0 Hypertensive heart disease with heart failure (principal); I24.9 Acute ischemic heart disease, unspecified; I50.43 Acute on chronic combined systolic (congestive) and diastolic (congestive) heart failure; I16.0 Hypertensive urgency; E87.6 Hypokalemia; Z53.29 Procedure and treatment not carried out because of patient's decision for other reasons; Z88.0 Allergy status to penicillin; Z88.1 Allergy status to other antibiotic agents; Z88.2 Allergy status to sulfonamides; Z91.018 Allergy to other foods
CPT/HCPCS: 36415; 71045; 80053; 83735; 83880; 84484; 85025; 85610; 85730; 93005; G0378

== ENCOUNTER 2023-06-29 16:23 | Inpatient (IN) | payer MEDICAID ==
[~2023-06-29] VITALS: Ht 162.6 cm; Wt 75.0 kg
[2023-06-29] MEDS ORDERED: hydrALAZINE HCL 20 MG/ML VL IV ONE (17:45)
[2023-06-29 18:12] LABS: Basophils # (auto) 0 10 ^3/uL (0-0.2); Basophils % (auto) 0.6 % (0.0-2.0); Eosinophils # (auto) 0 10 ^3/uL (0-0.8); Eosinophils % (auto) 0.7 % (0.0-7.0); Hematocrit 44.6 % (36.0-46.0); Hemoglobin 14.6 g/dL (12.2-16.2); Lymphocytes # (auto) 1.6 10 ^3/uL (0.4-5.4); Lymphocytes % (auto) 24.8 % (10.0-50.0); Mean Corpuscular Hemoglobin 30.2 pg (28.0-32.0); Mean Corpuscular Hgb Conc. 32.8 g/dL (32.0-36.0); Mean Corpuscular Volume 92.1 fL (80.0-100.0); Monocytes # (auto) 0.4 10 ^3/uL (0-1.3); Neutrophils # (auto) 4.4 10 ^3/uL (1.6-8.6); Neutrophils % (auto) 67.9 % (37.0-80.0); Nucleated Red Blood Cells % 0.5 %; Red Blood Cells 4.84 10^6/uL (4.0-5.20); Red Cell Distribution Width 14.4 % (11.8-14.3); White Blood Cell 6.5 10^3/uL (4.4-10.8)
[2023-06-29 18:29] LABS: Alanine Aminotransferase 23 U/L (7-40); Albumin 3.8 g/dL (3.2-4.8); Alkaline Phosphatase 91 U/L (46-116); Calcium 8.7 mg/dL (8.7-10.4); Carbon Dioxide 27 mmol/L (20-30); Chloride 107 mmol/L (98-107)
[2023-06-29 18:30] LABS: Anion Gap 9 (5-15); Aspartate Aminotransferase 22 U/L (13-40); Blood Urea Nitrogen 12 mg/dL (9-23); Glucose 84 mg/dL (74-106); Magnesium 1.3 mg/dL (1.6-2.6); Potassium 3.7 mmol/L (3.5-5.1); Sodium 143 mmol/L (136-145); Total Protein 6.1 g/dL (5.7-8.2)
[2023-06-29 18:31] LABS: INR 1.35 (0.9-1.15); Partial Thromboplastin Time 26.7 SEC (24.5-34.5); Prothrombin Time 13.9 sec (9.3-11.8)
[2023-06-29] MEDS ORDERED: NITROGLYCERIN 2% OINT 1GM PKG TD ONE (19:45)
[2023-06-29] MEDS ORDERED: FUROSEMIDE 100 MG/10ML VIAL IV ONE (19:45)
[2023-06-29] MEDS ORDERED: NITROGLYCERIN 0.4 MG SL TAB SL PRN (21:00)
[2023-06-29] MEDS ORDERED: MORPHINE SULFATE INJ 2 MG/ml SYRG IV PRN (21:00)
[2023-06-29] MEDS ORDERED: hydrALAZINE HCL 20 MG/ML VL IV PRN (21:00)
[2023-06-29 22:47] VITALS: PULSE 100; RESP 20; O2SAT 98
[2023-06-29] MEDS: MAGNESIUM SULFATE 1GM/100ML 100 ML IV SCH ×2 (23:00→23:30)
[2023-06-29] MEDS: SACUBITRIL-VALSARTAN 24mg/26mg TAB PO SCH (23:00)
[2023-06-30 00:51] LABS: Amphetamine Screen, Urine Pos (NEGATIVE); Barbiturate Scree,Urine Neg (NEGATIVE); Benzodiazephine Screen, Urine Neg (NEGATIVE); Cannabinoid Screen, Urine Neg (NEGATIVE); Cocaine Screen, Urine Neg (NEGATIVE); Opiate Scree,Urine Neg (NEGATIVE); Phencyclidine Screen, Urine Neg (NEGATIVE)
[2023-06-30] MEDS: ACETAMINOPHEN 325 MG TAB PO PRN ×2 (02:41→11:43)
[2023-06-30 03:58] LABS: Basophils # (auto) 0.1 10 ^3/uL (0-0.2); Basophils % (auto) 0.9 % (0.0-2.0); Eosinophils # (auto) 0.2 10 ^3/uL (0-0.8); Eosinophils % (auto) 1.9 % (0.0-7.0); Hematocrit 50.7 % (36.0-46.0); Hemoglobin 16.9 g/dL (12.2-16.2); Lymphocytes % (auto) 10.3 % (10.0-50.0); Mean Corpuscular Hemoglobin 30.5 pg (28.0-32.0); Mean Corpuscular Hgb Conc. 33.3 g/dL (32.0-36.0); Mean Corpuscular Volume 91.5 fL (80.0-100.0); Monocytes # (auto) 0.6 10 ^3/uL (0-1.3); Monocytes % (auto) 6.8 % (0.0-12.0); Neutrophils # (auto) 7.4 10 ^3/uL (1.6-8.6); Neutrophils % (auto) 80.1 % (37.0-80.0); Nucleated Red Blood Cells % 0.9 %; Red Blood Cells 5.54 10^6/uL (4.0-5.20); Red Cell Distribution Width 14.2 % (11.8-14.3); White Blood Cell 9.2 10^3/uL (4.4-10.8)
[2023-06-30 04:12] LABS: Alanine Aminotransferase 22 U/L (7-40); Albumin 4.4 g/dL (3.2-4.8); Alkaline Phosphatase 106 U/L (46-116); Anion Gap 10 (5-15); Aspartate Aminotransferase 22 U/L (13-40); BUN/Creatinine Ratio 13.6 (10.0-20.0); Blood Urea Nitrogen 14 mg/dL (9-23); Calcium 9.4 mg/dL (8.7-10.4); Carbon Dioxide 26 mmol/L (20-30); Chloride 105 mmol/L (98-107); Glucose 105 mg/dL (74-106); Sodium 141 mmol/L (136-145)
[2023-06-30 04:13] LABS: Bilirubin, Total 1.9 mg/dL (0.2-1.0); Total Protein 7.3 g/dL (5.7-8.2)
[2023-06-30] MEDS: FUROSEMIDE 20 MG/2 ML VIAL IV SCH ×3 (05:29→18:06)
[2023-06-30] MEDS ORDERED: POTASSIUM CHL 20 Meq TABLET PO ONE ×2 (05:45→11:15)
[2023-06-30] MEDS ORDERED: EMPA1TAB PO (08:21)
[2023-06-30] MEDS ORDERED: SPIR25TA8 PO (08:21)
[2023-06-30] MEDS: POTASSIUM CHL 20MEQ/100ML 100 ML IV SCH ×3 (08:58→10:54)
[2023-06-30] MEDS: ASPirin 81 mg TAB PO SCH (10:47)
[2023-06-30] MEDS: SACUBITRIL-VALSARTAN 24mg/26mg TAB PO SCH ×2 (10:47→21:27)
[2023-06-30] MEDS: SPIRONOLACTONE 25 MG TAB PO SCH (10:48)
[2023-06-30] MEDS: POTASSIUM CHL 20 Meq TABLET PO SCH (10:48)
[2023-06-30] MEDS: EMPAGLIFLOZIN 10 MG TAB PO SCH (10:48)
[2023-06-30] MEDS: METOPROLOL SUCCINATE XL 50 MG TAB PO SCH (10:48)
[2023-06-30] MEDS ORDERED: NICOTINE 21MG/24 HR TOPICAL PATCH TD ONE (11:15)
[2023-06-30 11:48] VITALS: PULSE 92; RESP 16; O2SAT 95
[2023-06-30 16:36] VITALS: BP 147/100; PULSE 77; RESP 22; TEMP 98.1; O2SAT 96
[2023-06-30] MEDS ORDERED: LORazepam 2MG/ML-1ML VIAL IV PRN (16:45)
[2023-06-30 17:00] VITALS: BP 147/100; PULSE 77; RESP 18; TEMP 98.1; O2SAT 96
[2023-06-30 18:39] LABS: Urine Bacteria MANY /hpf (None Seen); Urine Blood Negative /uL (Negative); Urine Clarity HAZY (Clear); Urine Color Yellow (Yellow); Urine Hyaline Cast FEW /lpf (0 - 2); Urine Protein, UAD 1+ (Negative); Urine Urobilinogen >12.0 mg/dL (Negative); Urine WBC 16 /hpf (0 - 5)
[2023-06-30 20:00] VITALS: PULSE 73; PULSE 84; RESP 98; O2SAT 98
[2023-06-30] MEDS: ATORVASTATIN 20 MG TAB PO SCH (21:27)
[2023-06-30 22:00] VITALS: BP 125/107; PULSE 73; RESP 20; TEMP 98.2; O2SAT 98
[2023-07-01] VITALS (7 sets, daily range): BP systolic 133–172; BP diastolic 86–119; PULSE 60–74; RESP 14–18; TEMP 97.7–98.3; O2SAT 95–98
[2023-07-01 06:00] LABS: Anion Gap 8 (5-15); Carbon Dioxide 25 mmol/L (20-30); Chloride 105 mmol/L (98-107); Potassium 3.8 mmol/L (3.5-5.1); Sodium 138 mmol/L (136-145)
[2023-07-01] MEDS: FUROSEMIDE 20 MG/2 ML VIAL IV SCH (06:00)
[2023-07-01 06:01] LABS: Calcium 9.2 mg/dL (8.7-10.4)
[2023-07-01 06:06] LABS: Blood Urea Nitrogen 16 mg/dL (9-23); Glucose 111 mg/dL (74-106)
[2023-07-01 06:07] LABS: Magnesium 1.6 mg/dL (1.6-2.6)
[2023-07-01] MEDS: SPIRONOLACTONE 25 MG TAB PO SCH (08:17)
[2023-07-01] MEDS: POTASSIUM CHL 20 Meq TABLET PO SCH (08:17)
[2023-07-01] MEDS: EMPAGLIFLOZIN 10 MG TAB PO SCH (08:18)
[2023-07-01] MEDS: ASPirin 81 mg TAB PO SCH (08:18)
[2023-07-01] MEDS: METOPROLOL SUCCINATE XL 50 MG TAB PO SCH (08:18)
[2023-07-01] MEDS: SACUBITRIL-VALSARTAN 24mg/26mg TAB PO SCH ×2 (08:18→21:50)
[2023-07-01] MEDS: NICOTINE 21MG/24 HR TOPICAL PATCH TD SCH (08:22)
[2023-07-01] MEDS: FUROSEMIDE 40 MG TAB PO SCH (10:25)
[2023-07-01] MEDS: cefTRIAXone 1GM/50ML D5W 50 ML IV SCH (11:00)
[2023-07-01] MEDS: LORazepam 0.5 MG TAB PO PRN ×2 (13:15→21:49)
[2023-07-01] MEDS ORDERED: LISINOPRIL 20 MG TAB PO ONE (14:00)
[2023-07-01 14:37] LABS: Urine Bacteria FEW /hpf (None Seen); Urine Blood Negative /uL (Negative); Urine Clarity HAZY (Clear); Urine Color Yellow (Yellow); Urine Mucus FEW (None Seen); Urine Protein, UAD TRACE (Negative); Urine Specific Gravity 1.019 (1.001-1.035); Urine WBC 5 /hpf (0 - 5)
[2023-07-01] MEDS: ATORVASTATIN 20 MG TAB PO SCH (21:49)
[2023-07-02] VITALS (7 sets, daily range): BP systolic 105–160; BP diastolic 84–101; PULSE 57–64; RESP 17–18; TEMP 97.9–98.9; O2SAT 91–100
[2023-07-02 06:33] LABS: Chloride 106 mmol/L (98-107); Sodium 136 mmol/L (136-145)
[2023-07-02 06:34] LABS: Anion Gap 11 (5-15); Calcium 8.9 mg/dL (8.7-10.4); Carbon Dioxide 19 mmol/L (20-30)
[2023-07-02 06:39] LABS: Glucose 91 mg/dL (74-106)
[2023-07-02 06:43] LABS: BUN/Creatinine Ratio 22.2 (10.0-20.0); Blood Urea Nitrogen 22 mg/dL (9-23)
[2023-07-02] MEDS: FUROSEMIDE 40 MG TAB PO SCH (08:59)
[2023-07-02] MEDS: EMPAGLIFLOZIN 10 MG TAB PO SCH (08:59)
[2023-07-02] MEDS: LORazepam 0.5 MG TAB PO PRN ×2 (08:59→15:10)
[2023-07-02] MEDS: ASPirin 81 mg TAB PO SCH (09:00)
[2023-07-02] MEDS: POTASSIUM CHL 20 Meq TABLET PO SCH (09:00)
[2023-07-02] MEDS: cefTRIAXone 1GM/50ML D5W 50 ML IV SCH (09:00)
[2023-07-02] MEDS: METOPROLOL SUCCINATE XL 50 MG TAB PO SCH (09:00)
[2023-07-02] MEDS: NICOTINE 21MG/24 HR TOPICAL PATCH TD SCH (09:00)
[2023-07-02] MEDS: SPIRONOLACTONE 25 MG TAB PO SCH (09:00)
[2023-07-02] MEDS ORDERED: LISINOPRIL 20 MG TAB PO SCH (10:00)
[2023-07-02] MEDS: LISINOPRIL 20 MG TAB PO SCH (10:02)
[2023-07-02] MEDS ORDERED: hydrALAZINE HCL 25 MG TAB PO ONE (10:30)
[2023-07-02] MEDS: ATORVASTATIN 20 MG TAB PO SCH (22:00)
[2023-07-02] MEDS: hydrALAZINE HCL 25 MG TAB PO SCH (22:00)
[2023-07-03 05:00] VITALS: BP 144/93; PULSE 55; RESP 17; TEMP 98.1; O2SAT 96
[2023-07-03 08:00] VITALS: PULSE 58; PULSE 60; RESP 19; O2SAT 98
[2023-07-03 09:19] VITALS: BP 128/92; PULSE 60; RESP 19; TEMP 98.1; O2SAT 98
[2023-07-03] MEDS: SPIRONOLACTONE 25 MG TAB PO SCH (09:46)
[2023-07-03] MEDS: LORazepam 0.5 MG TAB PO PRN (09:47)
[2023-07-03] MEDS: hydrALAZINE HCL 25 MG TAB PO SCH (09:47)
[2023-07-03] MEDS: ASPirin 81 mg TAB PO SCH (09:47)
[2023-07-03] MEDS: LISINOPRIL 20 MG TAB PO SCH (09:48)
[2023-07-03] MEDS: POTASSIUM CHL 20 Meq TABLET PO SCH (09:48)
[2023-07-03] MEDS: FUROSEMIDE 40 MG TAB PO SCH (09:48)
[2023-07-03] MEDS: EMPAGLIFLOZIN 10 MG TAB PO SCH (09:49)
[2023-07-03] MEDS: METOPROLOL SUCCINATE XL 50 MG TAB PO SCH (09:49)
[2023-07-03] MEDS ORDERED: EMPA1TAB PO (09:52)
[2023-07-03] MEDS ORDERED: ATOR20TA50 PO (09:52)
[2023-07-03] MEDS ORDERED: METO-6 PO (09:52)
[2023-07-03] MEDS ORDERED: HYDR25TA87 PO (09:52)
[2023-07-03] MEDS ORDERED: LISI20TA56 PO (09:52)
[2023-07-03] MEDS ORDERED: FURO40TA4 PO (09:52)
[2023-07-03] MEDS ORDERED: CEFD300C2 PO (09:52)
[2023-07-03] MEDS ORDERED: SPIR25TA PO (09:52)
[2023-07-03] MEDS ORDERED: POTA-220 PO (09:52)
[2023-07-03] MEDS ORDERED: ASPI-325 PO (09:52)
[2023-07-03] MEDS: cefTRIAXone 1GM/50ML D5W 50 ML IV SCH (09:59)
[2023-07-03] MEDS: NICOTINE 21MG/24 HR TOPICAL PATCH TD SCH (10:00)
[2023-07-03 12:15] VITALS: BP 128/92; PULSE 60; RESP 19; TEMP 98.1; O2SAT 98
== END 2023-07-03 16:51 | disposition home or self-care (01) | DRG 190 ==
LOC: EDBD 16:23 → ER 16:23 → TELE 21:03 → TELE-CENTR 06-30 16:35
PROVIDERS: ADMIT Nurse Practitioner; ATTEND Internal Medicine
DX: I21.4 Non-ST elevation (NSTEMI) myocardial infarction (principal); I50.43 Acute on chronic combined systolic (congestive) and diastolic (congestive) heart failure; I42.7 Cardiomyopathy due to drug and external agent; E83.42 Hypomagnesemia; N18.9 Chronic kidney disease, unspecified; I16.1 Hypertensive emergency; N39.0 Urinary tract infection, site not specified; I13.0 Hypertensive heart and chronic kidney disease with heart failure and stage 1 through stage 4 chronic kidney disease, or unspecified chronic kidney disease; F15.10 Other stimulant abuse, uncomplicated; F17.210 Nicotine dependence, cigarettes, uncomplicated; F19.10 Other psychoactive substance abuse, uncomplicated; R09.89 Other specified symptoms and signs involving the circulatory and respiratory systems; Z59.00 Homelessness unspecified; Z79.82 Long term (current) use of aspirin; Z79.84 Long term (current) use of oral hypoglycemic drugs; Z79.899 Other long term (current) drug therapy; Z80.0 Family history of malignant neoplasm of digestive organs; Z83.3 Family history of diabetes mellitus; Z86.32 Personal history of gestational diabetes; Z87.442 Personal history of urinary calculi; Z88.0 Allergy status to penicillin; Z91.199 Patient's noncompliance with other medical treatment and regimen due to unspecified reason; Z88.1 Allergy status to other antibiotic agents; Z88.2 Allergy status to sulfonamides
CPT/HCPCS: 36415; 71045; 80048; 80053; 80307; 81001; 83735; 83880; 84484; 85025; 85379; 85610; 85730; 87086; 93005; 93306; 96365; 96375; G0378; J0696; J3480

== ENCOUNTER 2023-09-18 11:31 | Inpatient (IN) | payer MEDICAID ==
[~2023-09-18] VITALS: Ht 162.6 cm; Wt 70.0 kg
[~2023-09-18 11:31] MED LIST changes: -ACET1CAP14 PO; +ASPI-325 PO; +ATOR20TA50 PO; +CEFD300C2 PO; -CIPR500T4 PO; +EMPA1TAB PO; +FURO40TA4 PO; +HYDR25TA87 PO; -LEVO750T40 PO; -LEVO750T8 PO; +LISI20TA56 PO; -NITR-87 PO; -ONDA-144 PO; +POTA-220 PO; +SPIR25TA PO; -TRAM-297 PO
[2023-09-18 11:40] VITALS: PULSE 65; RESP 21; O2SAT 92
[2023-09-18 12:11] LABS: Basophils # (auto) 0 10 ^3/uL (0-0.2); Basophils % (auto) 0.5 % (0.0-2.0); Eosinophils # (auto) 0 10 ^3/uL (0-0.8); Eosinophils % (auto) 0.3 % (0.0-7.0); Hematocrit 46.6 % (36.0-46.0); Hemoglobin 15.4 g/dL (12.2-16.2); Lymphocytes # (auto) 0.6 10 ^3/uL (0.4-5.4); Lymphocytes % (auto) 8.4 % (10.0-50.0); Mean Corpuscular Hemoglobin 30.3 pg (28.0-32.0); Mean Corpuscular Hgb Conc. 33.1 g/dL (32.0-36.0); Mean Corpuscular Volume 91.5 fL (80.0-100.0); Monocytes # (auto) 0.4 10 ^3/uL (0-1.3); Monocytes % (auto) 4.7 % (0.0-12.0); Neutrophils # (auto) 6.5 10 ^3/uL (1.6-8.6); Neutrophils % (auto) 86.1 % (37.0-80.0); Nucleated Red Blood Cells % 0.2 %; Red Blood Cells 5.09 10^6/uL (4.0-5.20); Red Cell Distribution Width 15.2 % (11.8-14.3); White Blood Cell 7.6 10^3/uL (4.4-10.8)
[2023-09-18 12:12] LABS: Chloride 106 mmol/L (98-107); Potassium 4.2 mmol/L (3.5-5.1); Sodium 140 mmol/L (136-145)
[2023-09-18 12:13] LABS: Anion Gap 5 (5-15); Calcium 9.6 mg/dL (8.5-10.1); Carbon Dioxide 29 mmol/L (20-30)
[2023-09-18 12:18] LABS: BUN/Creatinine Ratio 13.5 (10.0-20.0); Blood Urea Nitrogen 13 mg/dL (9-23); Glucose 102 mg/dL (74-106)
[2023-09-18] MEDS ORDERED: ENOXAPARIN SOD 100 MG/1 ML SYRINGE SC STA (12:48)
[2023-09-18 12:52] LABS: Urine Bacteria NONE SEEN /hpf (None Seen); Urine Blood Negative /uL (Negative); Urine Clarity Clear (Clear); Urine Color Yellow (Yellow); Urine Protein, UAD 1+ (Negative); Urine Specific Gravity 1.019 (1.001-1.035); Urine WBC 39 /hpf (0 - 5); Urine pH 7.5 (5.0-8.0)
[2023-09-18] MEDS ORDERED: ATORVASTATIN 20 MG TAB PO ONE (13:00)
[2023-09-18] MEDS ORDERED: PANTOPRAZOLE 40 MG/10 ML VIAL INJ IV ONE (13:00)
[2023-09-18] MEDS ORDERED: NITROGLYCERIN 0.4MG/HR TOPICAL PATCH TD ONE (13:00)
[2023-09-18] MEDS ORDERED: ASPirin 81 mg TAB PO ONE (13:00)
[2023-09-18 13:32] LABS: Amphetamine Screen, Urine Neg (NEGATIVE); Barbiturate Scree,Urine Neg (NEGATIVE); Benzodiazephine Screen, Urine Neg (NEGATIVE); Cannabinoid Screen, Urine Neg (NEGATIVE); Cocaine Screen, Urine Neg (NEGATIVE); Opiate Scree,Urine Neg (NEGATIVE); Phencyclidine Screen, Urine Neg (NEGATIVE)
[2023-09-18 13:33] LABS: Triglycerides 77 mg/dL (< 150)
[2023-09-18 13:34] LABS: Blood Alcohol < 3.0 mg/dL (<10); LDL Cholesterol 62 mg/dL (< 100)
[2023-09-18 13:35] LABS: Cholesterol 110 mg/dL (< 200); HDL Cholesterol 31 mg/dL (40-59)
[2023-09-18 14:01] LABS: Magnesium 1.2 mg/dL (1.6-2.6)
[2023-09-18] MEDS ORDERED: MORPHINE SULFATE INJ 2 MG/ml SYRG IV PRN (14:15)
[2023-09-18] MEDS ORDERED: NITROGLYCERIN 0.4 MG SL TAB SL PRN (14:15)
[2023-09-18] MEDS ORDERED: ACETAMINOPHEN 325 MG TAB PO PRN (14:15)
[2023-09-18] MEDS: MAGNESIUM SULFATE 1GM/100ML 100 ML IV SCH ×4 (14:15→20:47)
[2023-09-18] MEDS ORDERED: cefTRIAXone 1GM/50ML D5W 50 ML IV ONE (14:30)
[2023-09-18] MEDS ORDERED: hydrALAZINE HCL 20 MG/ML VL IV PRN (14:30)
[2023-09-18] MEDS ORDERED: hydrALAZINE HCL 20 MG/ML VL IV ONE (15:00)
[2023-09-18] MEDS: SODIUM CHLOR 0.9% PF (SALINE LOCK) 10ML VIAL/SYR IV SCH ×2 (15:16→21:55)
[2023-09-18] MEDS: MORPHINE SULFATE 4 MG/ML SYR/VIAL IV ONE ×2 (15:17→15:45)
[2023-09-18] MEDS: FUROSEMIDE 20 MG/2 ML VIAL IV SCH (17:50)
[2023-09-18 20:10] VITALS: PULSE 85; RESP 19; O2SAT 95
[2023-09-18] MEDS ORDERED: SACUBITRIL-VALSARTAN 24mg/26mg TAB PO SCH (22:00)
[2023-09-18] MEDS ORDERED: ENOXAPARIN SOD 100 MG/1 ML SYRINGE SC SCH (22:00)
[2023-09-18] MEDS ORDERED: ATORVASTATIN 20 MG TAB PO SCH (22:00)
[2023-09-19 05:38] LABS: Basophils # (auto) 0 10 ^3/uL (0-0.2); Basophils % (auto) 0.4 % (0.0-2.0); Eosinophils # (auto) 0 10 ^3/uL (0-0.8); Eosinophils % (auto) 0.6 % (0.0-7.0); Hematocrit 42.7 % (36.0-46.0); Hemoglobin 14.1 g/dL (12.2-16.2); Lymphocytes # (auto) 1.2 10 ^3/uL (0.4-5.4); Lymphocytes % (auto) 15.2 % (10.0-50.0); Mean Corpuscular Hemoglobin 30.1 pg (28.0-32.0); Mean Corpuscular Volume 91.2 fL (80.0-100.0); Monocytes # (auto) 0.6 10 ^3/uL (0-1.3); Monocytes % (auto) 7.8 % (0.0-12.0); Neutrophils # (auto) 6.1 10 ^3/uL (1.6-8.6); Nucleated Red Blood Cells % 0.1 %; Red Blood Cells 4.69 10^6/uL (4.0-5.20); Red Cell Distribution Width 15.7 % (11.8-14.3)
[2023-09-19 05:51] LABS: Alanine Aminotransferase 39 U/L (7-40); Albumin 3.4 g/dL (3.2-4.8); Alkaline Phosphatase 81 U/L (46-116); Anion Gap 10 (5-15); Aspartate Aminotransferase 48 U/L (13-40); BUN/Creatinine Ratio 10.7 (10.0-20.0); Blood Urea Nitrogen 12 mg/dL (9-23); Calcium 8.7 mg/dL (8.7-10.4); Carbon Dioxide 25 mmol/L (20-30); Chloride 104 mmol/L (98-107); Glucose 123 mg/dL (74-106); Potassium 3.4 mmol/L (3.5-5.1); Sodium 139 mmol/L (136-145)
[2023-09-19 05:52] LABS: Bilirubin, Total 1.6 mg/dL (0.2-1.0); Total Protein 5.4 g/dL (5.7-8.2)
[2023-09-19] MEDS: SODIUM CHLOR 0.9% PF (SALINE LOCK) 10ML VIAL/SYR IV SCH (06:10)
[2023-09-19] MEDS: FUROSEMIDE 20 MG/2 ML VIAL IV SCH (06:59)
[2023-09-19 07:51] VITALS: BP 139/89; PULSE 84; RESP 13; O2SAT 93
[2023-09-19 08:00] VITALS: TEMP 98
[2023-09-19] MEDS ORDERED: cefTRIAXone 1GM/50ML D5W 50 ML IV SCH (09:00)
[2023-09-19] MEDS ORDERED: ASPirin 81 mg TAB PO SCH (10:00)
[2023-09-19] MEDS ORDERED: METOPROLOL SUCCINATE XL 50 MG TAB PO SCH ×2 (10:00)
[2023-09-19] MEDS ORDERED: FUROSEMIDE 20 MG/2 ML VIAL IV SCH (10:00)
[2023-09-19] MEDS ORDERED: EMPAGLIFLOZIN 10 MG TAB PO SCH (10:00)
[2023-09-19] MEDS ORDERED: ENALAPRIL MALEATE 2.5 MG TAB PO SCH (10:00)
[2023-09-19] MEDS ORDERED: LISINOPRIL 20 MG TAB PO SCH (10:00)
== END 2023-09-19 08:15 | disposition left against medical advice (07) | DRG 190 ==
LOC: EDBD 11:31 → ER 11:31 → TELE 14:14
PROVIDERS: ADMIT Nurse Practitioner Family; ATTEND Nurse Practitioner Family
DX: I21.4 Non-ST elevation (NSTEMI) myocardial infarction (principal); I13.0 Hypertensive heart and chronic kidney disease with heart failure and stage 1 through stage 4 chronic kidney disease, or unspecified chronic kidney disease; I50.40 Unspecified combined systolic (congestive) and diastolic (congestive) heart failure; E66.01 Morbid (severe) obesity due to excess calories; Z53.29 Procedure and treatment not carried out because of patient's decision for other reasons; E83.42 Hypomagnesemia; F19.10 Other psychoactive substance abuse, uncomplicated; F15.10 Other stimulant abuse, uncomplicated; I16.9 Hypertensive crisis, unspecified; I25.2 Old myocardial infarction; Z59.01 Sheltered homelessness; Z79.82 Long term (current) use of aspirin; Z80.0 Family history of malignant neoplasm of digestive organs; Z83.3 Family history of diabetes mellitus; Z87.891 Personal history of nicotine dependence; Z88.0 Allergy status to penicillin; Z91.148 Patient's other noncompliance with medication regimen for other reason; Z71.3 Dietary counseling and surveillance; Z68.26 Body mass index [BMI] 26.0-26.9, adult; N18.9 Chronic kidney disease, unspecified
CPT/HCPCS: 36415; 71045; 80048; 80053; 80061; 80307; 80320; 81001; 83735; 83880; 84443; 84484; 85025; 87086; 93005; 96372; 96374; 99291; C9113; G0378

== ENCOUNTER 2023-10-23 10:22 | Inpatient (IN) | payer MEDICAID ==
[~2023-10-23] VITALS: Ht 172.7 cm; Wt 74.7 kg
[2023-10-23 11:12] LABS: Basophils # (auto) 0 10 ^3/uL (0-0.2); Basophils % (auto) 0.5 % (0.0-2.0); Eosinophils # (auto) 0 10 ^3/uL (0-0.8); Eosinophils % (auto) 0.6 % (0.0-7.0); Lymphocytes # (auto) 0.8 10 ^3/uL (0.4-5.4); Lymphocytes % (auto) 10.7 % (10.0-50.0); Mean Corpuscular Hemoglobin 29.5 pg (28.0-32.0); Mean Corpuscular Hgb Conc. 32.6 g/dL (32.0-36.0); Mean Corpuscular Volume 90.4 fL (80.0-100.0); Monocytes # (auto) 0.4 10 ^3/uL (0-1.3); Monocytes % (auto) 4.7 % (0.0-12.0); Neutrophils # (auto) 6.3 10 ^3/uL (1.6-8.6); Neutrophils % (auto) 83.5 % (37.0-80.0); Nucleated Red Blood Cells % 0.2 %; Red Blood Cells 4.75 10^6/uL (4.0-5.20); White Blood Cell 7.6 10^3/uL (4.4-10.8)
[2023-10-23 11:32] LABS: Alanine Aminotransferase 35 U/L (7-40); Albumin 3.3 g/dL (3.2-4.8); Alkaline Phosphatase 109 U/L (46-116); Anion Gap 6 (5-15); Aspartate Aminotransferase 38 U/L (13-40); BUN/Creatinine Ratio 16.3 (10.0-20.0); Blood Urea Nitrogen 13 mg/dL (9-23); Calcium 8.6 mg/dL (8.7-10.4); Carbon Dioxide 29 mmol/L (20-30); Chloride 107 mmol/L (98-107); Glucose 86 mg/dL (74-106); Magnesium 1.2 mg/dL (1.6-2.6); Potassium 3.2 mmol/L (3.5-5.1); Sodium 142 mmol/L (136-145)
[2023-10-23 11:33] LABS: Bilirubin, Total 0.9 mg/dL (0.2-1.0); Total Protein 5.6 g/dL (5.7-8.2)
[2023-10-23] MEDS: POTASSIUM CHL 20 Meq TABLET PO ONE (14:33)
[2023-10-23] MEDS: ASPirin 81 mg TAB PO ONE (14:33)
[2023-10-23 14:35] VITALS: PULSE 84; RESP 18; O2SAT 98
[2023-10-23] MEDS: FUROSEMIDE 40 MG/4 ML VIAL IV ONE (14:57)
[2023-10-23] MEDS: MAGNESIUM SULFATE 1GM/100ML 100 ML IV SCH ×2 (15:03→21:13)
[2023-10-23] MEDS: LORazepam 0.5 MG TAB PO PRN (17:53)
[2023-10-23 19:45] VITALS: PULSE 77; RESP 16; O2SAT 95
[2023-10-23] MEDS: hydrALAZINE HCL 20 MG/ML VL IV PRN (19:50)
[2023-10-23] MEDS: FUROSEMIDE 20 MG/2 ML VIAL IV SCH (21:11)
[2023-10-23 21:54] LABS: Urine Bacteria NONE SEEN /hpf (None Seen); Urine Blood Negative /uL (Negative); Urine Clarity Clear (Clear); Urine Color Colorless (Yellow); Urine Protein, UAD Negative (Negative); Urine Specific Gravity 1.004 (1.001-1.035); Urine Urobilinogen Normal (Negative); Urine WBC <1 /hpf (0 - 5); Urine pH 7.5 (5.0-8.0)
[2023-10-23 21:55] LABS: Amphetamine Screen, Urine Neg (NEGATIVE); Barbiturate Scree,Urine Neg (NEGATIVE); Benzodiazephine Screen, Urine Neg (NEGATIVE); Cannabinoid Screen, Urine Neg (NEGATIVE); Cocaine Screen, Urine Neg (NEGATIVE); Opiate Scree,Urine Neg (NEGATIVE); Phencyclidine Screen, Urine Neg (NEGATIVE)
[2023-10-23] MEDS ORDERED: hydrALAZINE HCL 25 MG TAB PO SCH (22:00)
[2023-10-23] MEDS ORDERED: SACUBITRIL-VALSARTAN 24mg/26mg TAB PO SCH (22:00)
[2023-10-23] MEDS: METOPROLOL SUCCINATE XL 50 MG TAB PO SCH (23:04)
[2023-10-23] MEDS: ATORVASTATIN 20 MG TAB PO SCH (23:04)
[2023-10-23] MEDS: SACUBITRIL-VALSARTAN 24mg/26mg TAB PO SCH (23:04)
[2023-10-24 06:12] LABS: Basophils # (auto) 0 10 ^3/uL (0-0.2); Basophils % (auto) 0.4 % (0.0-2.0); Eosinophils # (auto) 0 10 ^3/uL (0-0.8); Eosinophils % (auto) 0.1 % (0.0-7.0); Hematocrit 47.2 % (36.0-46.0); Hemoglobin 15.7 g/dL (12.2-16.2); Lymphocytes # (auto) 1.1 10 ^3/uL (0.4-5.4); Lymphocytes % (auto) 10.4 % (10.0-50.0); Mean Corpuscular Hemoglobin 29.7 pg (28.0-32.0); Mean Corpuscular Hgb Conc. 33.3 g/dL (32.0-36.0); Mean Corpuscular Volume 89.4 fL (80.0-100.0); Monocytes # (auto) 0.8 10 ^3/uL (0-1.3); Monocytes % (auto) 7.3 % (0.0-12.0); Neutrophils # (auto) 8.8 10 ^3/uL (1.6-8.6); Neutrophils % (auto) 81.8 % (37.0-80.0); Nucleated Red Blood Cells % 0.2 %; Red Blood Cells 5.28 10^6/uL (4.0-5.20); Red Cell Distribution Width 15.3 % (11.8-14.3); White Blood Cell 10.8 10^3/uL (4.4-10.8)
[2023-10-24 06:17] LABS: Alanine Aminotransferase 30 U/L (7-40); Albumin 3.3 g/dL (3.2-4.8); Alkaline Phosphatase 110 U/L (46-116); Anion Gap 9 (5-15); Aspartate Aminotransferase 35 U/L (13-40); BUN/Creatinine Ratio 17.6 (10.0-20.0); Blood Urea Nitrogen 13 mg/dL (9-23); Calcium 8.4 mg/dL (8.7-10.4); Carbon Dioxide 29 mmol/L (20-30); Chloride 102 mmol/L (98-107); Glucose 117 mg/dL (74-106); Magnesium 1.4 mg/dL (1.6-2.6); Potassium 2.9 mmol/L (3.5-5.1); Sodium 140 mmol/L (136-145); Total Protein 5.8 g/dL (5.7-8.2)
[2023-10-24 06:21] LABS: Bilirubin, Total 1.3 mg/dL (0.2-1.0)
[2023-10-24 08:00] VITALS: PULSE 80; RESP 12; O2SAT 97
[2023-10-24] MEDS: EMPAGLIFLOZIN 10 MG TAB PO SCH (09:20)
[2023-10-24] MEDS: ASPirin-EC 81 mg tab PO SCH (09:20)
[2023-10-24] MEDS: SPIRONOLACTONE 25 MG TAB PO SCH (09:20)
[2023-10-24] MEDS ORDERED: METOPROLOL SUCCINATE XL 50 MG TAB PO SCH (10:00)
[2023-10-24] MEDS: MAGNESIUM SULFATE 1GM/100ML 100 ML IV SCH (11:27)
[2023-10-24] MEDS: POTASSIUM CHL 20 Meq TABLET PO ONE (11:28)
[2023-10-24] MEDS: LORazepam 2MG/ML-1ML VIAL IV ONE (15:35)
[2023-10-24 22:00] VITALS: BP 149/76; PULSE 90; RESP 17; TEMP 99; O2SAT 95
[2023-10-25] VITALS (8 sets, daily range): BP systolic 131–147; BP diastolic 88–102; PULSE 64–85; RESP 16–20; TEMP 98.2–99.2; O2SAT 90–97
[2023-10-25 07:24] LABS: Basophils # (auto) 0 10 ^3/uL (0-0.2); Basophils % (auto) 0.4 % (0.0-2.0); Eosinophils # (auto) 0 10 ^3/uL (0-0.8); Hematocrit 48.8 % (36.0-46.0); Hemoglobin 16.3 g/dL (12.2-16.2); Lymphocytes # (auto) 1.6 10 ^3/uL (0.4-5.4); Lymphocytes % (auto) 16.5 % (10.0-50.0); Mean Corpuscular Hgb Conc. 33.5 g/dL (32.0-36.0); Mean Corpuscular Volume 89.8 fL (80.0-100.0); Monocytes # (auto) 0.7 10 ^3/uL (0-1.3); Monocytes % (auto) 7.4 % (0.0-12.0); Neutrophils # (auto) 7.2 10 ^3/uL (1.6-8.6); Neutrophils % (auto) 75.7 % (37.0-80.0); Nucleated Red Blood Cells % 0.5 %; Red Blood Cells 5.43 10^6/uL (4.0-5.20); White Blood Cell 9.5 10^3/uL (4.4-10.8)
[2023-10-25 07:58] LABS: Alanine Aminotransferase 24 U/L (7-40); Alkaline Phosphatase 107 U/L (46-116); Anion Gap 8 (5-15); BUN/Creatinine Ratio 18.4 (10.0-20.0); Blood Urea Nitrogen 16 mg/dL (9-23); Calcium 8.7 mg/dL (8.7-10.4); Carbon Dioxide 29 mmol/L (20-30); Chloride 101 mmol/L (98-107); Glucose 103 mg/dL (74-106); Magnesium 1.7 mg/dL (1.6-2.6); Potassium 3.7 mmol/L (3.5-5.1); Sodium 138 mmol/L (136-145)
[2023-10-25 08:00] LABS: Albumin 3.2 g/dL (3.2-4.8); Aspartate Aminotransferase 30 U/L (13-40); Bilirubin, Total 0.9 mg/dL (0.2-1.0); Total Protein 5.7 g/dL (5.7-8.2)
[2023-10-25] MEDS: HEPARIN SODIUM (PORCINE) 5000 UNITS/ML 1ML VIAL IV ONE (15:04)
[2023-10-25 16:07] LABS: Basophils # (auto) 0 10 ^3/uL (0-0.2); Basophils % (auto) 0.4 % (0.0-2.0); Eosinophils # (auto) 0 10 ^3/uL (0-0.8); Hemoglobin 16.6 g/dL (12.2-16.2); Lymphocytes # (auto) 1.2 10 ^3/uL (0.4-5.4); Lymphocytes % (auto) 11.6 % (10.0-50.0); Mean Corpuscular Hemoglobin 29.9 pg (28.0-32.0); Mean Corpuscular Hgb Conc. 33.2 g/dL (32.0-36.0); Mean Corpuscular Volume 89.8 fL (80.0-100.0); Monocytes # (auto) 0.8 10 ^3/uL (0-1.3); Monocytes % (auto) 7.5 % (0.0-12.0); Neutrophils # (auto) 8.6 10 ^3/uL (1.6-8.6); Neutrophils % (auto) 80.5 % (37.0-80.0); Nucleated Red Blood Cells % 0.3 %; Red Blood Cells 5.57 10^6/uL (4.0-5.20); Red Cell Distribution Width 15.2 % (11.8-14.3); White Blood Cell 10.7 10^3/uL (4.4-10.8)
[2023-10-25 16:22] LABS: INR 1.42 (0.9-1.15); Partial Thromboplastin Time 26.6 SEC (24.5-34.5); Prothrombin Time 14.6 sec (9.3-11.8)
[2023-10-25] MEDS: HEPARIN DRIP/D5W 100UNITS/ML 250 ML IV SCH (17:16)
[2023-10-25] MEDS: LISINOPRIL 10 MG TAB PO SCH (17:21)
[2023-10-25] MEDS: IOHEXOL 350 MG/ML 100ML IJ ONE (22:56)
[2023-10-25 23:20] LABS: INR 1.46 (0.9-1.15); Partial Thromboplastin Time 63.4 SEC (24.5-34.5)
[2023-10-25] MEDS: TEMAZEPAM 15 MG CAP PO ONE (23:32)
[2023-10-26] VITALS (7 sets, daily range): BP systolic 128–148; BP diastolic 81–94; PULSE 61–75; RESP 17–19; TEMP 97.3–98.7; O2SAT 92–99
[2023-10-26 07:19] LABS: Basophils # (auto) 0.1 10 ^3/uL (0-0.2); Basophils % (auto) 0.8 % (0.0-2.0); Eosinophils # (auto) 0 10 ^3/uL (0-0.8); Eosinophils % (auto) 0.4 % (0.0-7.0); Hematocrit 46.3 % (36.0-46.0); Hemoglobin 15.1 g/dL (12.2-16.2); Lymphocytes # (auto) 1.7 10 ^3/uL (0.4-5.4); Mean Corpuscular Hemoglobin 29.7 pg (28.0-32.0); Mean Corpuscular Hgb Conc. 32.6 g/dL (32.0-36.0); Mean Corpuscular Volume 90.9 fL (80.0-100.0); Monocytes # (auto) 0.4 10 ^3/uL (0-1.3); Monocytes % (auto) 5.1 % (0.0-12.0); Neutrophils # (auto) 6.5 10 ^3/uL (1.6-8.6); Neutrophils % (auto) 74.7 % (37.0-80.0); Nucleated Red Blood Cells % 0.2 %; Red Blood Cells 5.09 10^6/uL (4.0-5.20); Red Cell Distribution Width 15.1 % (11.8-14.3); White Blood Cell 8.7 10^3/uL (4.4-10.8)
[2023-10-26 07:27] LABS: Alanine Aminotransferase 22 U/L (7-40); Albumin 3.1 g/dL (3.2-4.8); Alkaline Phosphatase 93 U/L (46-116); Anion Gap 6 (5-15); Aspartate Aminotransferase 30 U/L (13-40); BUN/Creatinine Ratio 16.7 (10.0-20.0); Bilirubin, Total 0.7 mg/dL (0.2-1.0); Blood Urea Nitrogen 16 mg/dL (9-23); Calcium 8.7 mg/dL (8.7-10.4); Carbon Dioxide 28 mmol/L (20-30); Chloride 104 mmol/L (98-107); Glucose 120 mg/dL (74-106); Magnesium 1.7 mg/dL (1.6-2.6); Potassium 3.8 mmol/L (3.5-5.1); Sodium 138 mmol/L (136-145); Total Protein 5.3 g/dL (5.7-8.2)
[2023-10-26 07:33] LABS: INR 1.42 (0.9-1.15); Prothrombin Time 14.6 sec (9.3-11.8)
[2023-10-26 07:36] LABS: Partial Thromboplastin Time 107.2 SEC (24.5-34.5)
[2023-10-26] MEDS ORDERED: HEPARIN DRIP/D5W 100UNITS/ML 250 ML IV SCH (09:00)
[2023-10-26] MEDS ORDERED: HYDR-5052 PO (09:35)
[2023-10-26] MEDS: VALSARTAN 80 MG TAB PO SCH (10:45)
[2023-10-26] MEDS: NICOTINE 21MG/24 HR TOPICAL PATCH TD ONE (12:25)
[2023-10-26] MEDS: MAGNESIUM SULFATE 1GM/100ML 100 ML IV SCH ×2 (12:26→16:02)
[2023-10-26] MEDS: GABAPENTIN 100 MG CAP PO SCH (14:36)
[2023-10-26 15:52] LABS: INR 1.29 (0.9-1.15); Partial Thromboplastin Time 26.1 SEC (24.5-34.5); Prothrombin Time 13.3 sec (9.3-11.8)
[2023-10-26] MEDS: TEMAZEPAM 15 MG CAP PO ONE (23:04)
[2023-10-27] VITALS (8 sets, daily range): BP systolic 119–157; BP diastolic 66–98; PULSE 60–86; RESP 17–20; TEMP 97.9–98.7; O2SAT 92–99
[2023-10-27] MEDS: FUROSEMIDE 20 MG/2 ML VIAL IV SCH (06:34)
[2023-10-27 06:54] LABS: Basophils # (auto) 0.1 10 ^3/uL (0-0.2); Basophils % (auto) 0.9 % (0.0-2.0); Eosinophils # (auto) 0 10 ^3/uL (0-0.8); Eosinophils % (auto) 0.7 % (0.0-7.0); Hematocrit 44.8 % (36.0-46.0); Hemoglobin 14.7 g/dL (12.2-16.2); Lymphocytes # (auto) 1.8 10 ^3/uL (0.4-5.4); Lymphocytes % (auto) 24.2 % (10.0-50.0); Mean Corpuscular Hemoglobin 29.6 pg (28.0-32.0); Mean Corpuscular Hgb Conc. 32.7 g/dL (32.0-36.0); Mean Corpuscular Volume 90.6 fL (80.0-100.0); Monocytes # (auto) 0.5 10 ^3/uL (0-1.3); Monocytes % (auto) 7.3 % (0.0-12.0); Neutrophils % (auto) 66.9 % (37.0-80.0); Nucleated Red Blood Cells % 0.1 %; Red Blood Cells 4.94 10^6/uL (4.0-5.20); Red Cell Distribution Width 14.9 % (11.8-14.3); White Blood Cell 7.4 10^3/uL (4.4-10.8)
[2023-10-27 06:55] LABS: Anion Gap 7 (5-15); Carbon Dioxide 27 mmol/L (20-30); Chloride 105 mmol/L (98-107); Potassium 4.4 mmol/L (3.5-5.1); Sodium 139 mmol/L (136-145)
[2023-10-27 06:56] LABS: Calcium 8.8 mg/dL (8.7-10.4)
[2023-10-27 07:01] LABS: Blood Urea Nitrogen 15 mg/dL (9-23); Glucose 98 mg/dL (74-106)
[2023-10-27 07:02] LABS: Magnesium 1.9 mg/dL (1.6-2.6)
[2023-10-27 07:34] LABS: BUN/Creatinine Ratio 15.8 (10.0-20.0)
[2023-10-27] MEDS: NICOTINE 21MG/24 HR TOPICAL PATCH TD SCH (09:44)
[2023-10-28 05:00] VITALS: BP 144/86; PULSE 59; RESP 18; TEMP 98.7; O2SAT 96
[2023-10-28 08:00] VITALS: PULSE 57; RESP 19; O2SAT 99
[2023-10-28 08:30] VITALS: BP 144/101; PULSE 55; RESP 19; TEMP 98.1; O2SAT 98
[2023-10-28] MEDS ORDERED: METO-6 PO (11:23)
[2023-10-28] MEDS ORDERED: FURO1TAB31 PO (11:23)
[2023-10-28] MEDS ORDERED: ATOR20TA50 PO (11:23)
[2023-10-28] MEDS ORDERED: VALS1TAB57 PO (11:23)
[2023-10-28] MEDS ORDERED: GAB100C PO (11:23)
[2023-10-28] MEDS ORDERED: SPIR25TA PO (11:23)
[2023-10-28] MEDS ORDERED: ASPI-543 PO (11:23)
[2023-10-28] MEDS ORDERED: EMPA1TAB PO (11:23)
[2023-10-28] MEDS ORDERED: POTA-228 PO (11:23)
[2023-10-28 12:32] VITALS: BP 142/86; PULSE 57; RESP 19; TEMP 98.3; O2SAT 99
[2023-10-28 12:36] VITALS: BP 142/86; PULSE 57; RESP 19; TEMP 98.3; O2SAT 99
== END 2023-10-28 14:00 | disposition home or self-care (01) | DRG 194 ==
LOC: ER 10:22 → EDBD 10:22 → TELE 12:25 → TELE-WESTW 10-24 20:07
PROVIDERS: ADMIT Nurse Practitioner Family; ATTEND Internal Medicine
DX: I13.0 Hypertensive heart and chronic kidney disease with heart failure and stage 1 through stage 4 chronic kidney disease, or unspecified chronic kidney disease (principal); I21.A1 Myocardial infarction type 2; I27.20 Pulmonary hypertension, unspecified; I50.33 Acute on chronic diastolic (congestive) heart failure; I16.1 Hypertensive emergency; E87.6 Hypokalemia; F15.10 Other stimulant abuse, uncomplicated; N18.9 Chronic kidney disease, unspecified; I25.10 Atherosclerotic heart disease of native coronary artery without angina pectoris; F11.10 Opioid abuse, uncomplicated; E83.42 Hypomagnesemia; Z68.25 Body mass index [BMI] 25.0-25.9, adult; E87.5 Hyperkalemia; F17.210 Nicotine dependence, cigarettes, uncomplicated; F41.9 Anxiety disorder, unspecified; Z53.29 Procedure and treatment not carried out because of patient's decision for other reasons; E66.9 Obesity, unspecified; Z91.199 Patient's noncompliance with other medical treatment and regimen due to unspecified reason; Z59.00 Homelessness unspecified; Z79.82 Long term (current) use of aspirin; Z79.84 Long term (current) use of oral hypoglycemic drugs; Z79.899 Other long term (current) drug therapy; Z87.442 Personal history of urinary calculi; Z88.0 Allergy status to penicillin
CPT/HCPCS: 36415; 71045; 71275; 80048; 80053; 80307; 81001; 83735; 83880; 84100; 84484; 85025; 85610; 85730; 93005; 93306; 93970; 99291; G0378

== ENCOUNTER 2025-01-11 23:50 | Inpatient (IN) | payer MEDICAID, OTHER ==
[~2025-01-11] VITALS: Ht 160 cm; Wt 65.8 kg
[~2025-01-11 23:50] MED LIST changes: -ASPI-325 PO; +ASPI-543 PO; -CEFD300C2 PO; +FURO1TAB31 PO; -FURO1TAB33 PO; +GAB100C PO; +HYDR-5052 PO; -HYDR25TA87 PO; +POTA-228 PO; +VALS1TAB57 PO
[2025-01-12] MEDS: LABETALOL HCL 20 MG/4 ML VL IV ONE (00:30)
[2025-01-12 00:31] VITALS: PULSE 93; RESP 16; TEMP 97.4; O2SAT 96
[2025-01-12 00:42] LABS: Alanine Aminotransferase 37 U/L (7-40); Albumin 4.1 g/dL (3.2-4.8); Alkaline Phosphatase 98 U/L (46-116); Anion Gap 10 (5-15); BUN/Creatinine Ratio 24.2 (10.0-20.0); Calcium 9.1 mg/dL (8.7-10.4); Carbon Dioxide 26 mmol/L (20-31); Chloride 107 mmol/L (98-107); Potassium 3.7 mmol/L (3.5-5.1); Sodium 143 mmol/L (136-145); Total Protein 6.6 g/dL (5.7-8.2)
[2025-01-12 00:44] LABS: Aspartate Aminotransferase 41 U/L (13-40); Bilirubin, Total 1.4 mg/dL (0.2-1.0); Blood Urea Nitrogen 30 mg/dL (9-23); Glucose 108 mg/dL (74-106)
[2025-01-12 00:54] LABS: Basophils # (auto) 0.1 10 ^3/uL (0-0.2); Basophils % (auto) 0.7 % (0.0-2.0); Eosinophils # (auto) 0 10 ^3/uL (0-0.8); Eosinophils % (auto) 0.4 % (0.0-7.0); Hematocrit 48.7 % (36.0-46.0); Hemoglobin 16.4 g/dL (12.2-16.2); Lymphocytes # (auto) 1.6 10 ^3/uL (0.4-5.4); Lymphocytes % (auto) 17.9 % (10.0-50.0); Mean Corpuscular Hemoglobin 31.2 pg (28.0-32.0); Mean Corpuscular Hgb Conc. 33.7 g/dL (32.0-36.0); Mean Corpuscular Volume 92.6 fL (80.0-100.0); Monocytes # (auto) 0.6 10 ^3/uL (0-1.3); Monocytes % (auto) 6.4 % (0.0-12.0); Neutrophils # (auto) 6.5 10 ^3/uL (1.6-8.6); Neutrophils % (auto) 74.6 % (37.0-80.0); Nucleated Red Blood Cells % 0.1 %; Platelet Count (auto) 150 10^3/uL (140-450); Red Blood Cells 5.26 10^6/uL (4.0-5.20); Red Cell Distribution Width 14.9 % (11.8-14.3); White Blood Cell 8.7 10^3/uL (4.4-10.8)
--- NOTE | 2025-01-12 01:05 | DVH ---
CHEST RADIOGRAPH Indication: cp Technique: Single frontal view of the chest was obtained COMPARISON: XY CHEST PORTABLE on DOS: 10/23/23, XY CHEST PORTABLE on DOS: 09/18/23, XY CHEST PORTABLE o n DOS: 06/29/23, XY CHEST PORTABLE on DOS: 04/19/23, XY CHEST PORTABLE on DOS: 03/20/23 FINDINGS: Lines and Tubes: None Lungs: Clear Pleura: No effusion. No pneumothorax. Cardiomediastinal contours: [id number] cardiomegaly. IMPRESSION: Cardiomegaly.
--- NOTE | 2025-01-12 01:07 | DVH ---
CT HEAD WITHOUT CONTRAST INDICATION: roper COMPARISON: None TECHNIQUE: CT of the head without intravenous contrast. RADIATION DOSE: CTDIvol: mGy, DLP: mGy*cm FINDINGS: There is no evidence of intracranial hemorrhage, infarct, extra-axial collection, mass effect, midli ne shift, herniation or hydrocephalus. Chronic white matter microvascular ischemic changes. The ventr icles, sulci and cisterns are normal. The olivia-white differentiation is intact. Visualized paranasal sinuses and mastoid air cells are clear. Soft tissues and osseous structures are unremarkable. IMPRESSION: No acute intracranial abnormality identified. Chronic white matter microvascular ischemic changes.
[2025-01-12] MEDS: FUROSEMIDE 40 MG/4 ML VIAL IV ONE (01:48)
[2025-01-12] MEDS: ASPirin 325 MG TAB PO ONE (01:48)
--- NOTE | 2025-01-12 01:49 | ED.PDOC ---
History of Present Illness HPI Comments 49-year-old female complaining of nausea and vomiting. States she has a history of high blood pressure. Has been having mild headache. No chest pain no shortness a breath. Patient was states she was currently at a prison house. Does admit to methamphetamine and fentanyl abuse. States last time she was he was nine days ago. Says when she moved in they took her medications she was not been able to start her medications over the last Chief Complaint: High Blood Pressure Time Seen by MD: 00:14 Primary Care Provider: IE Reviewed Notes: Nurses Notes Allergies: Coded Allergies: Levofloxacin (Verified Allergy, Mild, ITCHINESS, 06/29/23) Avocado (Unverified Allergy, Unknown, 06/29/23) Penicillins (Verified Allergy, Unknown, 06/29/23) Sulfa Antibiotics (Verified Allergy, Unknown, 06/29/23) Home Meds Active Scripts Potassium Chloride (Potassium Chloride ER) 10 Meq Tab, 10 MEQ PO DAILY for 30 Days, #30 TAB 3 Refills Prov:CLAUDIA CRISTINA MD 10/28/23 Furosemide (Lasix) 40 Mg Tab, 40 MG PO QAM for 30 Days, #30 TAB 3 Refills Prov:CLAUDIA CRISTINA MD 10/28/23 Gabapentin (Gabapentin) 100 Mg Cap, 100 MG PO TID for 30 Days, #90 CAP 2 Refills Prov:CLAUDIA CRISTINA MD 10/28/23 Valsartan (Valsartan) 80 Mg Tab, 80 MG PO DAILY for 30 Days, #30 TAB 3 Refills Prov:CLAUDIA CRISTINA MD 10/28/23 Spironolactone (Aldactone) 25 Mg Tab, 25 MG PO DAILY for 30 Days, #30 TAB 3 Refills Prov:CLAUDIA CRISTINA MD 10/28/23 Metoprolol Succinate (Toprol Xl) 50 Mg Tab, 50 MG PO DAILY for 30 Days, #30 TAB 3 Refills Prov:CLAUDIA CRISTINA MD 10/28/23 Empagliflozin (Jardiance) 10 Mg Tab, 10 MG PO DAILY for 30 Days, #30 TAB 3 Refills Prov:CLAUDIA CRISTINA MD 10/28/23 Atorvastatin Calcium (ATORVASTATIN CALCIUM) 20 Mg Tab, 40 MG PO HS for 30 Days, #30 TAB 3 Refills Prov:CLAUDIA CRISTINA MD 10/28/23 Aspirin (Aspir-Low) 81 Mg Tab, 81 MG PO DAILY for 30 Days, #30 TAB 3 Refills Prov:CLAUDIA CRISTINA MD 10/28/23 Lisinopril (Lisinopril) 20 Mg Tab, 40 MG PO DAILY for 30 Days, #60 TAB 3 Refills Prov:CLAUDIA CRISTINA MD 07/03/23 Potassium Chloride (Klor-Con M20) 20 Meq Tab, 20 MEQ PO DAILY for 30 Days, #30 TAB 3 Refills Prov:CLAUDIA CRISTINA MD 07/03/23 Furosemide (Furosemide) 40 Mg Tab, 40 MG PO DAILY for 30 Days, #30 TAB 3 Refills Prov:CLAUDIA CRISTINA MD 07/03/23 Metoprolol Succinate (Toprol Xl) 50 Mg Tab, 50 MG PO DAILY for 30 Days, #30 TAB 3 Refills Prov:CLAUDIA CRISTINA MD 07/03/23 Sacubitril-Valsartan (Entresto 24-26 mg) 1 Tab Tab, 1 TAB PO BID for 60 Days, #120 TAB Prov:AZEB JUAREZ NP 03/20/23 Reported Medications Hydralazine HCl (Hydralazine Hydrochloride) 50 Mg Tab, 50 MG PO BID, TAB 10/26/23 Information Source: Patient Mode of Arrival: Ambulatory Past Medical History PAST MEDICAL HISTORY: CHF, CKF, HTN, Kidney Stones, [place] [employer] OFFICER History: No Pertinent COUNTY [employer]NAG[employer] 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 History Family History Family History: Reviewed,noncontributory to illness, Family hx of Cancer Social History Smoker: Cigarettes, Less Than 1 Pack/Day Alcohol: Occasionally Drugs: Marijuana, Methamphetamine, Other Lives In: Homeless Constitutional: denies: chills, diaphoresis, fatigue, fever, malaise, sweats, weakness, others EENTM: denies: blurred vision, double vision, ear bleeding, ear discharge, ear drainage, ear pain, ear ringing, eye pain, eye redness, hearing loss, mouth pain, mouth swelling, nasal discharge, nose bleeding, nose congestion, nose pain, photophobia, tearing, throat pain, throat swelling, voice changes, others Respiratory: reports: SOB with excertion; denies: cough, hemoptysis, orthopnea, SOB at rest, shortness of breath, stridor, wheezing, others Cardiovascular: denies: chest pain, dizzy spells, diaphoresis, Dyspnea on exertion, edema, irregular heart beat, left arm pain, lightheadedness, palpitations, PND, syncope, others Gastrointestinal: reports: nausea, vomiting; denies: abdomen distended, abdominal pain, blood streaked bowels, constipated, diarrhea, dysphagia, difficulty swallowing, hematemesis, melena, poor appetite, poor fluid intake, rectal bleeding, rectal pain, others Genitourinary: denies: abnormal vagina bleeding, burning, dyspareunia, dysuria, flank pain, frequency, hematuria, incontinence, pain, , vagina discharge, urgency, others Neurological: reports: headache; denies: dizziness, fainting, left sided numbness, left sided weakness, numbness, paresthesia, pre-existing deficit, right sided numbness, right sided weakness, seizure, speech problems, tingling, tremors, weakness, others Musculoskeletal: denies: back pain, gout, joint pain, joint swelling, muscle pain, muscle stiffness, neck pain, others Integumetry: denies: bruises, change in color, change in hair/nails, dryness, laceration, lesions, lumps, rash, wounds, others Allergic/Immunocompromised: denies: Difficulty Healing, Frequent Infections, Hives, Itching, others Endocrine: denies: excessive hunger, excessive sweating, excessive thirst, excessive urination, flushing, intolerance to cold, intolerance to heat, unexplained weight gain, unexplained weight loss, others Psychiatric: denies: anxiety, bipolar disorder, depression, hopeless, panic disorder, schizophrenia, sleepless, suicidal, others Physical Exam General Appearance: No Apparent Distress, Normal HEENT: Normal ENT Inspection, Pharynx Normal, TMs Normal Neck: Full Range of Motion, Non-Tender, Normal, Normal Inspection Respiratory: Chest Non-Tender, Lungs Clear, No Accessory Muscle Use, No Respiratory Distress, Normal Breath Sounds Cardiovascular: No Edema, No JVD, No Murmur, No Gallop, Normal Peripheral Pulses, Regular Rate/Rhythm Breast Exam: Deferred Gastrointestinal: No Organomegaly, Non Tender, No Pulsatile Mass, Normal Bowel Sounds, Soft Genitalia: Deferred Pelvic: Deferred Rectal: Deferred Extremities: No calf tenderness, Normal capillary refill, Normal inspection, Normal range of motion, Non-tender, No pedal edema Musculoskeletal : Apperance: Normal Neurologic: Alert, ice guard tester II-XII nml as Tested, No Motor Deficits, Normal Affect, Normal Mood, No Sensory Deficits Cerebellar Function: Normal Reflexes: Normal Skin: Dry, Normal Color, Warm Lymphatic: No Adenopathy Was a procedure done? Was a procedure done?: No Differential Dx Considerations may include: Semi, CVA, hypertensive urgency, methamphetamine abuse, fentanyl abuse. X-Ray, Labs, Meds, VS Vital Signs Date Time Temp Pulse Resp B/P (MAP) Pulse Ox O2 Delivery O2 Flow Rate FiO2 01/12/25 00:31 97.4 93 16 212/153 (172) 96 97.4 01/12/25 00:31 93 16 96 Room Air* 0 21 01/12/25 00:30 93 212/153 01/11/25 23:57 97.4 104 17 209/159 (176) 96 97.4 Lab Test 01/12/25 01:13 01/12/25 00:11 Range/Units Troponin I High Sensitivity Pending 449 *H </=34 ng/L White Blood Count 8.7 4.4-10.8 10^3/uL Red Blood Count 5.26 H 4.0-5.20 10^6/uL Hemoglobin 16.4 H 12.2-16.2 g/dL Hematocrit 48.7 H 36.0-46.0 % Mean Corpuscular Volume 92.6 80.0-100.0 fL Mean Corpuscular Hemoglobin 31.2 28.0-32.0 pg Mean Corpuscular Hemoglobin Concent 33.7 32.0-36.0 g/dL Red Cell Distribution Width 14.9 H 11.8-14.3 % Platelet Count 150 140-450 10^3/uL Mean Platelet Volume 10.0 6.9-10.8 fL Neutrophils (%) (Auto) 74.6 37.0-80.0 % Lymphocytes (%) (Auto) 17.9 10.0-50.0 % Monocytes (%) (Auto) 6.4 0.0-12.0 % Eosinophils (%) (Auto) 0.4 0.0-7.0 % Basophils (%) (Auto) 0.7 0.0-2.0 % Neutrophils # (Auto) 6.5 1.6-8.6 10 ^3/uL Lymphocytes # (Auto) 1.6 0.4-5.4 10 ^3/uL Monocytes # (Auto) 0.6 0-1.3 10 ^3/uL Eosinophils # (Auto) 0 0-0.8 10 ^3/uL Basophils # (Auto) 0.1 0-0.2 10 ^3/uL Nucleated Red Blood Cells 0.1 % Sodium Level 143 136-145 mmol/L Potassium Level 3.7 3.5-5.1 mmol/L Chloride Level 107 98-107 mmol/L Carbon Dioxide Level 26 20-31 mmol/L Anion Gap 10 5-15 Blood Urea Nitrogen 30 H 9-23 mg/dL Creatinine 1.24 H 0.550-1.02 mg/dL Glomerular Filtration Rate Calc 54 >90 mL/min BUN/Creatinine Ratio 24.2 H 10.0-20.0 Serum Glucose 108 H 74-106 mg/dL Calcium Level 9.1 8.7-10.4 mg/dL Total Bilirubin 1.4 H 0.2-1.0 mg/dL Aspartate Amino Transferase (AST) 41 H 13-40 U/L Alanine Aminotransferase (ALT) 37 7-40 U/L Alkaline Phosphatase 98 46-116 U/L B-Type Natriuretic Peptide 1256.96 0-100 pg/mL Total Protein 6.6 5.7-8.2 g/dL Albumin 4.1 3.2-4.8 g/dL Current Medications Medications (Trade) Dose Ordered Sig/Fatou Route Start Time Stop Time Status Last Admin Labetalol HCl (Labetalol HCl) 15 mg ONCE ONCE IV 01/12/25 00:15 01/12/25 00:16 DC 01/12/25 00:30 X-Ray, Labs, Meds, VS Comment Imaging: X-rays and CT scans were reviewed and interpreted by this provider, imaging shows no fractures and no pathological disease. Pending radiology review. Laboratory: Labs reviewed and interpreted by this provider. Elevated troponin, signs of acute kidney injury , elevated BNP Patient will be admitted for ACS NSTEMI, acute kidney injury, CHF exacerbation Pending urine drug screen, suspected methamphetamine abuse Patient will be given 40 mg Lasix , aspirin 325 Patient has prior medical visits reviewed. Med reconciliation performed Vital signs reviewed Time of 1ST Reevaluation: 01:49 Reevaluation 1ST: Unchanged Patient Education/Counseling: Diagnosis, Treatment Family Education/Counseling: Diagnosis Departure 1 Departure Time of Disposition: 01:46 Impression: Primary Impression: NSTEMI (non-ST elevated myocardial infarction) Additional Impressions: CHF exacerbation Qualified Codes: I50.23 - Acute on chronic systolic (congestive) heart failure Nausea & vomiting Qualified Codes: R11.2 - Nausea with vomiting, unspecified CHAPIN (acute kidney injury) Disposition: 09 ADMITTED INPATIENT Condition: Guarded Critical Care Note Critical Care Time?: No Stability Stability form required: No Heart Score Heart Score: Heart Score Response (Comments) Value History Slightly Suspicious 0 EKG Normal 0 Age 45-64 1 Risk Factors >3 or Hx ASHD 2 Troponin >3 x's Normal limit 2 Total 5 ANSLEY STEWART January 12, 2025 01:49
[2025-01-12] MEDS ORDERED: ACETAMINOPHEN 325 MG TAB PO PRN (02:30)
[2025-01-12] MEDS ORDERED: hydrALAZINE HCL 20 MG/ML VL IV PRN (02:30)
[2025-01-12] MEDS ORDERED: NITROGLYCERIN 0.4 MG SL TAB SL PRN (02:30)
[2025-01-12] MEDS ORDERED: HYDROcodone-ACET 5/325MG TAB PO PRN (02:30)
[2025-01-12] MEDS ORDERED: MORPHINE SULFATE INJ 2 MG/ml SYRG IV PRN (02:30)
[2025-01-12 03:22] LABS: Basophils # (auto) 0.1 10 ^3/uL (0-0.2); Basophils % (auto) 0.8 % (0.0-2.0); Eosinophils # (auto) 0 10 ^3/uL (0-0.8); Eosinophils % (auto) 0.5 % (0.0-7.0); Hematocrit 50.7 % (36.0-46.0); Hemoglobin 17.1 g/dL (12.2-16.2); Lymphocytes # (auto) 1.8 10 ^3/uL (0.4-5.4); Lymphocytes % (auto) 19.6 % (10.0-50.0); Mean Corpuscular Hgb Conc. 33.8 g/dL (32.0-36.0); Mean Corpuscular Volume 91.8 fL (80.0-100.0); Monocytes # (auto) 0.6 10 ^3/uL (0-1.3); Monocytes % (auto) 6.2 % (0.0-12.0); Neutrophils # (auto) 6.6 10 ^3/uL (1.6-8.6); Neutrophils % (auto) 72.9 % (37.0-80.0); Nucleated Red Blood Cells % 0.2 %; Platelet Count (auto) 143 10^3/uL (140-450); Red Blood Cells 5.52 10^6/uL (4.0-5.20)
[2025-01-12 03:37] LABS: Urine Bacteria FEW /hpf (None Seen); Urine Blood TRACE /uL (Negative); Urine Clarity Clear (Clear); Urine Color Colorless (Yellow); Urine Protein, UAD Negative (Negative); Urine Specific Gravity 1.005 (1.001-1.035); Urine Squamous Epithelial Cell FEW /hpf (<5); Urine Urobilinogen Normal (Negative); Urine WBC 90 /HPF (0-5); Urine pH 6.5 (5.0-9.0)
[2025-01-12 03:53] LABS: Amphetamine Screen, Urine Pos (NEGATIVE)
[2025-01-12 03:56] LABS: Alanine Aminotransferase 38 U/L (7-40); Albumin 4.3 g/dL (3.2-4.8); Alkaline Phosphatase 104 U/L (46-116); Anion Gap 11 (5-15); Aspartate Aminotransferase 39 U/L (13-40); BUN/Creatinine Ratio 22.9 (10.0-20.0); Calcium 9.5 mg/dL (8.7-10.4); Carbon Dioxide 28 mmol/L (20-31); Chloride 104 mmol/L (98-107); Sodium 143 mmol/L (136-145); Total Protein 6.8 g/dL (5.7-8.2)
[2025-01-12 03:58] LABS: Barbiturate Scree,Urine Neg (NEGATIVE); Benzodiazephine Screen, Urine Neg (NEGATIVE); Cannabinoid Screen, Urine Neg (NEGATIVE); Cocaine Screen, Urine Neg (NEGATIVE); Opiate Scree,Urine Neg (NEGATIVE); Phencyclidine Screen, Urine Neg (NEGATIVE)
[2025-01-12 03:59] LABS: Bilirubin, Total 1.7 mg/dL (0.2-1.0); Blood Urea Nitrogen 30 mg/dL (9-23); Glucose 123 mg/dL (74-106); Potassium 3.5 mmol/L (3.5-5.1)
[2025-01-12] MEDS: VALSARTAN 80 MG TAB PO SCH (04:00)
[2025-01-12] MEDS: METOPROLOL SUCCINATE XL 50 MG TAB PO SCH (04:01)
[2025-01-12] MEDS: NIFEdipine ER 30 MG TAB PO SCH (04:02)
[2025-01-12 06:00] VITALS: BP 204/131; PULSE 67; RESP 10; O2SAT 96
[2025-01-12] MEDS: FUROSEMIDE 40 MG/4 ML VIAL IV SCH (06:16)
--- NOTE | 2025-01-12 06:20 | DVHHP2 ---
History of Present Illness Reason for Visit: hypertesnive emeregncy History of Present Illness This is a 49-year-old female with a history of congestive heart failure, hypertension, coronary artery disease, and remote stroke, who presented with nausea, vomiting, and elevated blood pressure. She reported a mild headache but denied chest pain or shortness of breath. She noted recent medication noncompliance due to a transition to a [facility], where her medications were not restarted. She endorsed recent use of fentanyl and methamphetamine approximately 10 days prior. On presentation, she had slurred speech, some confusion, and +1 pitting edema of the lower extremities with drainage. She was hypertensive on arrival. Of note, she was recently hospitalized in October 2023 for a hypertensive emergency and acute decompensated heart failure with similar features. PAST MEDICAL HISTORY: Congestive heart failure (HFpEF with RV strain and pulmonary hypertension) Hypertension Coronary artery disease History of renal stent Tobacco use disorder Substance use disorder (fentanyl, methamphetamine) Noncompliance Stroke Pulmonary hypertension Recurrent UTIs PAST SURGICAL HISTORY: Not clearly documented. ALLERGIES: Levofloxacin (itchiness) Avocado, Penicillin, Sulfa (reaction unknown) MEDICATIONS (prior to admission): Potassium chloride, furosemide, gabapentin, valsartan, aldactone, metoprolol, Jardiance, aspirin, atorvastatin, sacubitril-valsartan (likely started but unclear), and others per home med list. SOCIAL HISTORY: Currently residing in a [facility]. Denies being homeless. History of tobacco, methamphetamine, and fentanyl use. REVIEW OF SYSTEMS: Positive for nausea, vomiting, headache, and mild confusion. Negative for chest pain, SOB, or fevers. Review of Systems Allergies: Coded Allergies: Levofloxacin (Verified Allergy, Mild, ITCHINESS, 06/29/23) Avocado (Unverified Allergy, Unknown, 06/29/23) Penicillins (Verified Allergy, Unknown, 06/29/23) Sulfa Antibiotics (Verified Allergy, Unknown, 06/29/23) Medications Current Medications Medications Dose Ordered Sig/Fatou Route Start Time Stop Time Status Last Admin Dose Admin Acetaminophen 650 mg Q6HP PRN PO 01/12/25 02:30 Acetaminophen/ Hydrocodone Bitart 1 tab Q4HP PRN PO 01/12/25 02:30 Enoxaparin Sodium 40 mg DAILY SC 01/12/25 10:00 Nitroglycerin 0.4 mg Q5MINP PRN SL 01/12/25 02:30 Morphine Sulfate 2 mg Q30M PRN IV 01/12/25 02:30 Aspirin 81 mg DAILY PO 01/12/25 10:00 Atorvastatin Calcium 40 mg HS PO 01/12/25 22:00 Furosemide 40 mg BIDD IV 01/12/25 06:00 Spironolactone 25 mg DAILY PO 01/12/25 10:00 Valsartan 160 mg DAILY PO 01/12/25 02:30 01/12/25 04:00 160 MG Nifedipine 60 mg DAILY PO 01/12/25 02:30 01/12/25 04:02 60 MG Metoprolol Succinate 50 mg DAILY PO 01/12/25 02:30 01/12/25 04:01 50 MG Hydralazine HCl 10 mg Q6HP PRN IV 01/12/25 02:30 Hydralazine HCl 25 mg Q12HR PO 01/12/25 06:15 Nicardipine HCl 250 ml @ 50 mls/hr Q5H IV 01/12/25 06:15 Exam Vital Signs Vital Signs Date Time Temp Pulse Resp B/P (MAP) Pulse Ox O2 Delivery O2 Flow Rate FiO2 01/12/25 04:02 202/129 01/12/25 04:01 78 01/12/25 04:00 9 92 01/12/25 00:31 97.4 97.4 01/12/25 00:31 Room Air* 0 21 Exam General: Alert, mild confusion noted. HEENT: Normocephalic, atraumatic. CV: RRR, no murmurs. Trace bilateral LE edema. Resp: Clear to auscultation bilaterally. GI: Soft, NT, ND. Neuro: Alert but mildly confused. Slurred speech. Skin: +1 pitting edema BLE with drainage. Psych: Appropriate but some delayed responses. Labs/Xrays Labs Test 01/12/25 03:00 01/12/25 01:50 01/12/25 00:11 Range/Units White Blood Count 9.0 4.4-10.8 10^3/uL Red Blood Count 5.52 H 4.0-5.20 10^6/uL Hemoglobin 17.1 H 12.2-16.2 g/dL Hematocrit 50.7 H 36.0-46.0 % Mean Corpuscular Volume 91.8 80.0-100.0 fL Mean Corpuscular Hemoglobin 31.0 28.0-32.0 pg Mean Corpuscular Hemoglobin Concent 33.8 32.0-36.0 g/dL Red Cell Distribution Width 15.0 H 11.8-14.3 % Platelet Count 143 140-450 10^3/uL Mean Platelet Volume 9.5 6.9-10.8 fL Neutrophils (%) (Auto) 72.9 37.0-80.0 % Lymphocytes (%) (Auto) 19.6 10.0-50.0 % Monocytes (%) (Auto) 6.2 0.0-12.0 % Eosinophils (%) (Auto) 0.5 0.0-7.0 % Basophils (%) (Auto) 0.8 0.0-2.0 % Neutrophils # (Auto) 6.6 1.6-8.6 10 ^3/uL Lymphocytes # (Auto) 1.8 0.4-5.4 10 ^3/uL Monocytes # (Auto) 0.6 0-1.3 10 ^3/uL Eosinophils # (Auto) 0 0-0.8 10 ^3/uL Basophils # (Auto) 0.1 0-0.2 10 ^3/uL Nucleated Red Blood Cells 0.2 % Sodium Level 143 136-145 mmol/L Potassium Level 3.5 3.5-5.1 mmol/L Chloride Level 104 98-107 mmol/L Carbon Dioxide Level 28 20-31 mmol/L Anion Gap 11 5-15 Blood Urea Nitrogen 30 H 9-23 mg/dL Creatinine 1.31 H 0.550-1.02 mg/dL Glomerular Filtration Rate Calc 51 >90 mL/min BUN/Creatinine Ratio 22.9 H 10.0-20.0 Serum Glucose 123 H 74-106 mg/dL Hemoglobin A1c 5.4 <5.7 % A1C Calcium Level 9.5 8.7-10.4 mg/dL Total Bilirubin 1.7 H 0.2-1.0 mg/dL Aspartate Amino Transferase (AST) 39 13-40 U/L Alanine Aminotransferase (ALT) 38 7-40 U/L Alkaline Phosphatase 104 46-116 U/L Troponin I High Sensitivity 441 *H </=34 ng/L Total Protein 6.8 5.7-8.2 g/dL Albumin 4.3 3.2-4.8 g/dL Thyroid Stimulating Hormone (TSH) 5.31 H 0.55-4.78 uIU/mL Urine Color Colorless Yellow Urine Clarity Clear Clear Urine pH 6.5 5.0-9.0 Urine Specific [place] 1.005 1.001-1.035 Urine Protein Negative Negative Urine Ketones Negative Negative Urine Blood Trace H Negative /uL Urine Nitrite Negative Negative Urine Bilirubin Negative Negative Urine Urobilinogen Normal Negative mg/dL Urine Leukocyte Esterase 3+ Negative /uL Urine RBC 14 0 - 4 /hpf Urine Microscopic WBC 90 H 0-5 /HPF Urine Squamous Epithelial Cells Few <5 /hpf Urine Bacteria Few H None Seen /hpf Urine Glucose Normal Normal mg/dL Urine Opiates Screen Neg NEGATIVE Urine Fentanyl Screen Pos NEGATIVE Urine Barbiturates Screen Neg NEGATIVE Urine Phencyclidine Screen Neg NEGATIVE Urine Amphetamines Screen Pos NEGATIVE Urine Benzodiazepines Screen Neg NEGATIVE Urine Cocaine Screen Neg NEGATIVE Urine Cannabinoids Screen Neg NEGATIVE B-Type Natriuretic Peptide 1256.96 0-100 pg/mL Assessment/Plan Assessment/Plan #Hypertensive emergency: CHAPIN + encephalopathy #Acute metabolic encephalopathy due to hypertensive emergency resolving #CHAPIN due to hypertensive emergency #Acute on chronic diastolic heart failure. #Non-ST elevation myocardial infarction, likely type 2. #Drug abuse with amphetamine and fentanyl. #Tobacco abuse. #Severe pulmonary hypertension. #History of coronary artery disease. #History of renal stent. #Noncompliance. #Complicated UTI #H/o stroke Admit Cardiac diet Normal Head CT scan ICU/MILAGROS Nicardipine drip Aspirin Atorvastatin Furosemide IV 40 mg BID Valsartan 160 mg PO Hydralazine 25 mg BID PO Nifedipine 60 mg PO Metoprolol 50 mg PO Spironolactone 25 mg PO Ceftriaxone IV ECHO Case discussed with Dr Hancock Full code Plan discussed with: Patient, Other (rn) My Orders Orders - CLOTILDE MERCEDES Procedure Category Date Status Time Code Status CODE 01/12/25 Transmitted 02:20 Vital Signs JULIANNA 01/12/25 In Process 02:20 Review Orders With JULIANNA 01/12/25 In Process 02:20 Consistent DIET 01/12/25 Transmitted Carb(Ccho)Diabetes Breakfast Acetaminophen Tablet PHA 01/12/25 In Process (Tylenol Tablet) 02:30 Notify Of Changes JULIANNA 01/12/25 In Process From Base 02:20 Advance Directive JULIANNA 01/12/25 In Process 02:20 Echo 2d Mode Cardiac US 01/12/25 Logged DOP 02:20 Patient Condition ORDERS 01/12/25 Transmitted 02:20 Allergies JULIANNA 01/12/25 In Process 02:20 Hydrocodone-Acet PHA 01/12/25 In Process 5/325mg Tab ([place] 02:30 Enoxaparin Sodium PHA 01/12/25 In Process (Lovenox) 10:00 Nitroglycerin PHA 01/12/25 In Process Sublingual (Ntrostat 02:30 Morphine Sulfate PHA 01/12/25 In Process Injection 02:30 Oxygen By Nasal RT 01/12/25 Transmitted Cannula 02:20 Stat Ekg For Chest JULIANNA 01/12/25 In Process Pain 02:20 Notify Of Changes JULIANNA 01/12/25 In Process From Base 02:20 [place] Counselor For JULIANNA 01/12/25 In Process 24 Hours 02:20 Emergency Dysrhythmia JULIANNA 01/12/25 In Process Protocol 02:20 Rhythm Strips Once JULIANNA 01/12/25 In Process Every Shift 02:20 Aspirin Tablet PHA 01/12/25 In Process 10:00 Atorvastatin (Lipitor) PHA 01/12/25 In Process 22:00 Furosemide Injection PHA 01/12/25 In Process (Lasix Injection) 06:00 Spironolactone PHA 01/12/25 In Process (Aldactone) 10:00 Valsartan (Diovan) PHA 01/12/25 In Process 02:30 Nifedipine Er PHA 01/12/25 In Process (Procardia Xl 02:30 Metoprolol Xl PHA 01/12/25 In Process Succinate (Toprol Xl) 02:30 * Outside Dealer Sales Representative CONS 01/12/25 Transmitted Consult Hydralazine Injection PHA 01/12/25 In Process (Apresoline Inject 02:30 Hydralazine Hcl PHA 01/12/25 In Process Tablet (Apresoline 06:15 Nicardipine PHA 01/12/25 In Process 25mg/250ml Bag Kit 06:[address] 01/12/25 Logged 06:09 Admit ADMIT 01/12/25 Transmitted 06:16 Date of Service: January 12, 2025 Billing Provider: LUIGI HANCOCK MD Common Visit Codes: [id number] INP/OBS CARE (HIGH) Secondary Visit Codes: [id number] CARE PLAN 30 MINUTES CLOTILDE MERCEDES RESIDENT January 12, 2025 06:20
[2025-01-12] MEDS: hydrALAZINE HCL 25 MG TAB PO SCH (06:28)
[2025-01-12] MEDS ORDERED: cefTRIAXone 1GM/50ML D5W 50 ML IV SCH ×2 (06:30→09:00)
--- NOTE | 2025-01-12 06:41 | ECG ---
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
[2025-01-12] MEDS ORDERED: ASPirin 81 mg TAB PO SCH (10:00)
[2025-01-12] MEDS ORDERED: SPIRONOLACTONE 25 MG TAB PO SCH (10:00)
[2025-01-12] MEDS ORDERED: hydrALAZINE HCL 25 MG TAB PO SCH (10:00)
[2025-01-12] MEDS ORDERED: ENOXAPARIN SOD 40 MG/0.4 ML SYRINGE SC SCH (10:00)
[2025-01-12] MEDS ORDERED: ATORVASTATIN 20 MG TAB PO SCH (22:00)
--- NOTE | 2025-01-13 03:18 | DVHDSRES ---
Discharge Summary Date of Admission Resident Creating Document: CLOTILDE MERCEDES RESIDENT January 12, 2025 at 02:20 Date of Discharge: January 12, 2025 Admitting Diagnosis hypertensive emergency Labs/Diagnostic Data: Laboratory Results Test 01/12/25 03:00 01/12/25 01:50 01/12/25 00:11 White Blood Count 9.0 10^3/uL (4.4-10.8) Red Blood Count 5.52 10^6/uL (4.0-5.20) Hemoglobin 17.1 g/dL (12.2-16.2) Hematocrit 50.7 % (36.0-46.0) Mean Corpuscular Volume 91.8 fL (80.0-100.0) Mean Corpuscular Hemoglobin 31.0 pg (28.0-32.0) Mean Corpuscular Hemoglobin Concent 33.8 g/dL (32.0-36.0) Red Cell Distribution Width 15.0 % (11.8-14.3) Platelet Count 143 10^3/uL (140-450) Mean Platelet Volume 9.5 fL (6.9-10.8) Neutrophils (%) (Auto) 72.9 % (37.0-80.0) Lymphocytes (%) (Auto) 19.6 % (10.0-50.0) Monocytes (%) (Auto) 6.2 % (0.0-12.0) Eosinophils (%) (Auto) 0.5 % (0.0-7.0) Basophils (%) (Auto) 0.8 % (0.0-2.0) Neutrophils # (Auto) 6.6 10 ^3/uL (1.6-8.6) Lymphocytes # (Auto) 1.8 10 ^3/uL (0.4-5.4) Monocytes # (Auto) 0.6 10 ^3/uL (0-1.3) Eosinophils # (Auto) 0 10 ^3/uL (0-0.8) Basophils # (Auto) 0.1 10 ^3/uL (0-0.2) Nucleated Red Blood Cells 0.2 % Sodium Level 143 mmol/L (136-145) Potassium Level 3.5 mmol/L (3.5-5.1) Chloride Level 104 mmol/L (98-107) Carbon Dioxide Level 28 mmol/L (20-31) Anion Gap 11 (5-15) Blood Urea Nitrogen 30 mg/dL (9-23) Creatinine 1.31 mg/dL (0.550-1.02) Glomerular Filtration Rate Calc 51 mL/min (>90) BUN/Creatinine Ratio 22.9 (10.0-20.0) Serum Glucose 123 mg/dL (74-106) Hemoglobin A1c 5.4 % A1C (<5.7) Calcium Level 9.5 mg/dL (8.7-10.4) Total Bilirubin 1.7 mg/dL (0.2-1.0) Aspartate Amino Transferase (AST) 39 U/L (13-40) Alanine Aminotransferase (ALT) 38 U/L (7-40) Alkaline Phosphatase 104 U/L (46-116) Troponin I High Sensitivity 441 ng/L (</=34) Total Protein 6.8 g/dL (5.7-8.2) Albumin 4.3 g/dL (3.2-4.8) Thyroid Stimulating Hormone (TSH) 5.31 uIU/mL (0.55-4.78) Urine Color Colorless (Yellow) Urine Clarity Clear (Clear) Urine pH 6.5 (5.0-9.0) Urine Specific [place] 1.005 (1.001-1.035) Urine Protein Negative (Negative) Urine Ketones Negative (Negative) Urine Blood Trace /uL (Negative) Urine Nitrite Negative (Negative) Urine Bilirubin Negative (Negative) Urine Urobilinogen Normal mg/dL (Negative) Urine Leukocyte Esterase 3+ /uL (Negative) Urine RBC 14 /hpf (0 - 4) Urine Microscopic WBC 90 /HPF (0-5) Urine Squamous Epithelial Cells Few /hpf (<5) Urine Bacteria Few /hpf (None Seen) Urine Glucose Normal mg/dL (Normal) Urine Opiates Screen Neg (NEGATIVE) Urine Fentanyl Screen Pos (NEGATIVE) Urine Barbiturates Screen Neg (NEGATIVE) Urine Phencyclidine Screen Neg (NEGATIVE) Urine Amphetamines Screen Pos (NEGATIVE) Urine Benzodiazepines Screen Neg (NEGATIVE) Urine Cocaine Screen Neg (NEGATIVE) Urine Cannabinoids Screen Neg (NEGATIVE) B-Type Natriuretic Peptide 1256.96 pg/mL (0-100) Other Laboratory Tests 01/12/25 03:00 Brief Hx & Hospital Course: 49-year-old female with history of HFpEF, CAD, remote stroke, substance use disorder (fentanyl, methamphetamine), and chronic tobacco use presented with nausea, vomiting, and elevated blood pressure. She reported recent use of fentanyl and methamphetamine approximately 10 days prior to admission. She endorsed mild headache but denied chest pain or shortness of breath. On arrival, she was hypertensive with slurred speech and mild confusion. Physical exam was notable for 1+ lower extremity edema. She was diagnosed with hypertensive emergency complicated by acute metabolic encephalopathy and CHAPIN, likely on the background of chronic diastolic heart failure. Labs and clinical presentation suggested a possible type [address] was negative for acute stroke. Initial treatment included nicardipine drip, aspirin, statin, IV diuretics, and broad-spectrum antibiotics due to history of recurrent UTIs. An echocardiogram was ordered but not completed.Patient was counseled extensively regarding the risks of leaving AMA, including risk of recurrent hypertensive crisis, stroke, worsening kidney function, and . She acknowledged understanding but insisted on leaving. Medications on Discharge: No medications provided due to AMA discharge. Instructions: Return to ED immediately for chest pain, neurological changes, SOB, worsening confusion, or syncope. Case discussed with Dr Hancock Operations or Procedures CT HEAD WITHOUT CONTRAST INDICATION: roper COMPARISON: None TECHNIQUE: CT of the head without intravenous contrast. RADIATION DOSE: CTDIvol: mGy, DLP: mGy*cm FINDINGS: There is no evidence of intracranial hemorrhage, infarct, extra-axial collection, mass effect, midline shift, herniation or hydrocephalus. Chronic white matter microvascular ischemic changes. The ventricles, sulci and cisterns are normal. The olivia-white differentiation is intact. Visualized paranasal sinuses and mastoid air cells are clear. Soft tissues and osseous structures are unremarkable. IMPRESSION: No acute intracranial abnormality identified. Chronic white matter microvascular ischemic changes. Condition at Discharge: Unstable Final Diagnosis/Problems List #Hypertensive emergency: CHAPIN + encephalopathy #Acute metabolic encephalopathy due to hypertensive emergency resolving #CHAPIN due to hypertensive emergency #Acute on chronic diastolic heart failure. #Non-ST elevation myocardial infarction, likely type 2. #Drug abuse with amphetamine and fentanyl. #Tobacco abuse. #Severe pulmonary hypertension. #History of coronary artery disease. #History of renal stent. #Noncompliance. #Complicated UTI #H/o stroke Discharge Disposition: AMA Discharge Statement: "Patient was advised to return to the ER or call 911 if any headaches, dizziness, shortness of breath, chest pain, abdominal pain, bleeding, fevers, or worsening of medical condition. Patient was counseled about treatment plan, medications, possible side effects, patientverbalized understanding. All questions were answered to the best of my ability. This discharge took greater then 30 minutes in planning, reviewing documentation, counseling the patient, and discussing with other team members." ASSESSMENT ASSESSMENT Assessment Date of Service: January 12, 2025 Billing Provider: LUIGI HNACOCK MD Common Visit Codes: 56284-HZP/OBS DISCH DAY <30MIN CLOTILDE MERCEDES RESIDENT January 13, 2025 03:18 LUIGI HANCOCK MD January 13, 2025 17:02
== END 2025-01-12 07:45 | disposition left against medical advice (07) | DRG 199 ==
LOC: ER 23:50 → OVERFLOW 01-12 02:20
PROVIDERS: ATTEND Internal Medicine
DX: I16.1 Hypertensive emergency (principal); G93.41 Metabolic encephalopathy; I50.33 Acute on chronic diastolic (congestive) heart failure; I21.A1 Myocardial infarction type 2; N17.9 Acute kidney failure, unspecified; I27.20 Pulmonary hypertension, unspecified; F15.10 Other stimulant abuse, uncomplicated; F11.10 Opioid abuse, uncomplicated; Z53.29 Procedure and treatment not carried out because of patient's decision for other reasons; F17.210 Nicotine dependence, cigarettes, uncomplicated; I25.10 Atherosclerotic heart disease of native coronary artery without angina pectoris; N39.0 Urinary tract infection, site not specified; I11.0 Hypertensive heart disease with heart failure; Z79.82 Long term (current) use of aspirin; Z79.899 Other long term (current) drug therapy; Z88.0 Allergy status to penicillin; Z88.2 Allergy status to sulfonamides; Z88.8 Allergy status to other drugs, medicaments and biological substances; Z59.00 Homelessness unspecified; Z87.440 Personal history of urinary (tract) infections; Z91.148 Patient's other noncompliance with medication regimen for other reason; Z88.1 Allergy status to other antibiotic agents; Z86.73 Personal history of transient ischemic attack (TIA), and cerebral infarction without residual deficits; Z87.442 Personal history of urinary calculi
CPT/HCPCS: 36415; 70450; 71045; 80053; 80307; 81001; 83036; 83880; 84443; 84484; 85025; 93005; 96374; 96375; G0378

== ENCOUNTER 2025-02-08 12:52 | Emergency (ER) | payer MEDICAID ==
[~2025-02-08] VITALS: Ht 154.9 cm; Wt 65.0 kg
[2025-02-08 12:52] VITALS: BP 138/82; PULSE 100; RESP 16; TEMP 100.2; O2SAT 98
[2025-02-08] MEDS: SODIUM CHLORIDE 0.9% 1,000 ML IV ONE (13:00)
--- NOTE | 2025-02-08 13:06 | ED.PDOC ---
Psychiatric HPI Comments 49y F who presents to the ED via EMS for chief complaint of overdose. Per EMS, pt was found down in parking lot and fire was called to the scene. Pt was given Narcan and pt became alert and oriented and EMS was called to the scene. Pt was stable by EMS and brought to the ED. Pt in the ED, placed on supplemental 02. Pt in the ED, otherwise denies suicidal or homicidal ideations. Pt otherwise states she smokes METH and Fentanyl. Pt otherwise denies any other symptoms at this time. Time Seen by MD: 13:03 Primary Care Provider: SINDY Reviewed Notes: [employer] Notes Information Source: Emergency Med Personnel Mode of Arrival: EMS Severity: Unable to Care for Self Severity of Pain: Moderate Severity of Mental Status: Moderate Severity of Symptoms: Moderate Timing: Minutes, Hours Duration: Since onset Prehospital treatment: None Presents with: Other (fentanyl OD) Attempt: Ingestion Ingestion: Drug(s) Ingested Circumstance: Medical Clearance Current substance abuse: Amphetamines, Narcotics History of: None Quality: None Associated signs and symptoms: Amphetamines Past Medical History PAST MEDICAL HISTORY: CHF, CKF, HTN, Kidney Stones, [place] 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 Family History Family History: Reviewed,noncontributory to illness, Family hx of Cancer Social History Smoker: Cigarettes, Less Than 1 Pack/Day Alcohol: Occasionally Drugs: Marijuana, Methamphetamine, Other Lives In: Homeless Constitutional: denies: chills, diaphoresis, fatigue, fever, malaise, sweats, weakness, others EENTM: denies: blurred vision, double vision, ear bleeding, ear discharge, ear drainage, ear pain, ear ringing, eye pain, eye redness, hearing loss, mouth pain, mouth swelling, nasal discharge, nose bleeding, nose congestion, nose pain, photophobia, tearing, throat pain, throat swelling, voice changes, others Respiratory: denies: cough, hemoptysis, orthopnea, SOB at rest, shortness of breath, SOB with excertion, stridor, wheezing, others Cardiovascular: denies: chest pain, dizzy spells, diaphoresis, Dyspnea on exertion, edema, irregular heart beat, left arm pain, lightheadedness, palpitations, PND, syncope, others Gastrointestinal: denies: abdomen distended, abdominal pain, blood streaked bowels, constipated, diarrhea, dysphagia, difficulty swallowing, hematemesis, melena, nausea, poor appetite, poor fluid intake, rectal bleeding, rectal pain, vomiting, others Genitourinary: denies: abnormal vagina bleeding, burning, dyspareunia, dysuria, flank pain, frequency, hematuria, incontinence, pain, , vagina discharge, urgency, others Neurological: denies: dizziness, fainting, headache, left sided numbness, left sided weakness, numbness, paresthesia, pre-existing deficit, right sided numbness, right sided weakness, seizure, speech problems, tingling, tremors, weakness, others Musculoskeletal: denies: back pain, gout, joint pain, joint swelling, muscle pain, muscle stiffness, neck pain, others Integumetry: denies: bruises, change in color, change in hair/nails, dryness, laceration, lesions, lumps, rash, wounds, others Allergic/Immunocompromised: denies: Difficulty Healing, Frequent Infections, Hives, Itching, others Hematologic/Lymphatic: denies: anemia, blood clots, easy bleeding, easy bruising, swollen glands, others Endocrine: denies: excessive hunger, excessive sweating, excessive thirst, excessive urination, flushing, intolerance to cold, intolerance to heat, unexplained weight gain, unexplained weight loss, others Psychiatric: reports: others (drug OD); denies: anxiety, bipolar disorder, depression, hopeless, panic disorder, schizophrenia, sleepless, suicidal All Other Systems: Reviewed and Negative Physical Exam General Appearance: No Apparent Distress HEENT: Normal ENT Inspection, Pharynx Normal, TMs Normal Neck: Full Range of Motion, Non-Tender, Normal, Normal Inspection Respiratory: Chest Non-Tender, Lungs Clear, No Accessory Muscle Use, No Respiratory Distress, Normal Breath Sounds Cardiovascular: No Edema, No JVD, No Murmur, No Gallop, Normal Peripheral Pulses, Regular Rate/Rhythm Breast Exam: Deferred Gastrointestinal: No Organomegaly, Non Tender, No Pulsatile Mass, Normal Bowel Sounds, Soft Genitalia: Deferred Pelvic: Deferred Rectal: Deferred Extremities: No calf tenderness, Normal capillary refill, Normal inspection, Normal range of motion, Non-tender, No pedal edema Musculoskeletal : Apperance: Normal Neurologic: Alert, loan broker II-XII nml as Tested, No Motor Deficits, Normal Affect, Normal Mood, No Sensory Deficits Cerebellar Function: Normal Reflexes: Normal Skin: Dry, Normal Color, Warm Lymphatic: No Adenopathy Was a procedure done? Was a procedure done?: No Psych Differential Dx Psych. Differential Dx: Depression, Suicidal OD Differential Dx: Substance Abuse, Suicidal Attempt Intoxication Differential Dx: Drug-Induced Psychosis, Electrolyte Imbalance, Encephalopathy, Substance Abuse Disorder X-Ray, Labs, Meds, VS Vital Signs Date Time Temp Pulse Resp B/P (MAP) Pulse Ox O2 Delivery O2 Flow Rate FiO2 02/08/25 12:52 100.2 100 16 138/82 (100) 98 100.2 Upon arrival, the patient is awake and alert. It seems that the patient did not wait around for any further testing. The patient has now eloped from the department's Time of 1ST Reevaluation: 13:35 Reevaluation 1ST: Unchanged Patient Education/Counseling: Diagnosis, Treatment, Prognosis Family Education/Counseling: No Family Present Departure 1 Departure Time of Disposition: 15:02 Impression: Primary Impression: Methamphetamine abuse Additional Impression: Accidental fentanyl overdose Qualified Codes: T40.411A - Poisoning by fentanyl or fentanyl analogs, accidental (unintentional), initial encounter Disposition: 07 LEFT AWOL/ELOPED Condition: Fair Critical Care Note Critical Care Time?: No Stability Stability form required: No Heart Score Heart Score: Heart Score Response (Comments) Value History N/A 0 EKG N/A 0 Age N/A 0 Risk Factors N/A 0 Troponin N/A 0 Total 0 I personally scribed for GRACIA JAVIER MD ([email or web address]) on 02/08/25 at 13:06. Electronically submitted by Moose Armstrong ([email or web address]). GRACIA JAVIER MD Feb 08, 2025 13:06
== END 2025-02-08 14:18 | disposition left against medical advice (07) ==
LOC: ER 12:52 → EDBD 12:52 → ER 14:18
DX: T40.411A Poisoning by fentanyl or fentanyl analogs, accidental (unintentional), initial encounter (principal); I11.0 Hypertensive heart disease with heart failure; I50.9 Heart failure, unspecified; F17.210 Nicotine dependence, cigarettes, uncomplicated; F15.10 Other stimulant abuse, uncomplicated; Y92.89 Other specified places as the place of occurrence of the external cause